=== PATIENT | female | born 1940 | race African-American/Black ===

== ENCOUNTER 2021-11-25 09:51 | Observation (INO) ==
[2021-11-25] MEDS ORDERED: ONDANSETRON 4 MG/2 ML VIAL IV PRN (10:06)
[2021-11-25] MEDS ORDERED: MAGNESIUM SULF RIDER 2 GM/50 ML PREMIX IV PRN (10:06)
[2021-11-25] MEDS ORDERED: MAGNESIUM SULF RIDER 4 GM/100 ML PREMIX IV PRN (10:06)
[2021-11-25] MEDS ORDERED: ACETAMINOPHEN 325 MG TABLET PO PRN (10:06)
[2021-11-25 13:35] LABS: Basophils % 0.4 % (0.0-0.8); Eosinophils # 0.1 10*3/uL (0.0-0.87); Eosinophils % 1.1 % (0.00-10.9); Hemoglobin 11.1 GM/DL (12.0-16.0); Immature Granulocytes % 0.4 %; Immature Granulocytes Absolute 0.03 #; Lymphocytes # 1.9 10*3/uL (1.4-4.0); Lymphocytes % 25.9 % (21.3-54.2); Mean Corpuscular HGB Conc 32.6 GM/DL (32-36); Mean Corpuscular Volume 92.9 FL (87-102); Mean Platelet Volume 11.5 FL (9.6-12.0); Monocytes # 0.8 10*3/uL (0.11-0.8); Monocytes % 11.4 % (1.7-12.7); Neutrophils % 60.8 % (38.7-73.9); Platelet Count 205 T/CUMM (130-400); Red Blood Count 3.66 MC/CUMM (3.8-5.5); Red Cell Distribution Width 16.5 % (9.3-17.3); White Blood Count 7.4 T/CUMM (4-12)
[2021-11-25 13:59] LABS: Alanine Aminotransferase 40 U/L (13-56); Albumin 3.2 G/DL (3.4-5.0); Alkaline Phosphatase 54 U/L (45-117); Aspartate Amino Transferase 15 U/L (0-37); Bilirubin,Total < 0.39 MG/DL (0.20-1.00); Blood Urea Nitrogen 35 MG/DL (7-18); Calcium 9.7 MG/DL (8.5-10.1); Carbon Dioxide 22 MMOL/L (21-32); Chloride 111 MMOL/L (98-107); Estimated Glom Filtration Rate 41 ML/MIN; Glucose 98 MG/DL (74-106); Osmolality,Calculated 284.5 MOS/KG (273-304); Potassium 3.5 MMOL/L (3.5-5.1); Sodium 139 MMOL/L (136-145); Total Protein 6.8 G/DL (6.4-8.2)
[2021-11-25] MEDS: DILTIAZEM INJ 100 MG in SODIUM CHLORIDE 0.9% 100 ML IV SCH (15:16)
[2021-11-25] MEDS ORDERED: FUROSEMIDE 20 MG/2 ML VIAL IV ONE (15:16)
[2021-11-25] MEDS ORDERED: NAPROXEN 250 MG TABLET PO PRN (15:22)
[2021-11-25] MEDS: AMIODARONE 200 MG TABLET PO SCH (21:45)
[2021-11-25] MEDS: APIXABAN 5 MG TABLET PO SCH (21:45)
[2021-11-25] MEDS: SILDENAFIL 20 MG TABLET PO SCH (21:45)
[2021-11-25] MEDS: ATORVASTATIN 10 MG TABLET PO SCH (21:45)
[2021-11-25] MEDS: PANTOPRAZOLE 40 MG TABLET PO SCH (21:45)
[2021-11-25] MEDS: BUDESONIDE/FORMOTEROL 80-4.5 INHALER 6.9 GM INH SCH (21:46)
[2021-11-25] MEDS: IPRATROPIUM 500 MCG/2.5 ML NEB RESP TX SCH (22:26)
[2021-11-26 05:32] LABS: Basophils % 0.4 % (0.0-0.8); Eosinophils # 0.1 10*3/uL (0.0-0.87); Eosinophils % 1.8 % (0.00-10.9); Hematocrit 31.8 VOL% (35.7-47.0); Hemoglobin 10.3 GM/DL (12.0-16.0); Immature Granulocytes % 0.4 %; Immature Granulocytes Absolute 0.03 #; Lymphocytes # 1.9 10*3/uL (1.4-4.0); Lymphocytes % 26.6 % (21.3-54.2); Mean Corpuscular HGB Conc 32.4 GM/DL (32-36); Mean Corpuscular Volume 94.1 FL (87-102); Monocytes # 0.8 10*3/uL (0.11-0.8); Monocytes % 11.5 % (1.7-12.7); Neutrophils % 59.3 % (38.7-73.9); Platelet Count 189 T/CUMM (130-400); Red Blood Count 3.38 MC/CUMM (3.8-5.5); Red Cell Distribution Width 16.4 % (9.3-17.3); White Blood Count 7.1 T/CUMM (4-12)
[2021-11-26 05:49] LABS: Osmolality,Calculated 285.4 MOS/KG (273-304); Potassium 3.3 MMOL/L (3.5-5.1)
[2021-11-26] MEDS: IPRATROPIUM 500 MCG/2.5 ML NEB RESP TX SCH ×4 (07:16→19:27)
[2021-11-26] MEDS ORDERED: POTASSIUM CHLORIDE 20 MEQ TABLET PO ONE (07:19)
[2021-11-26] MEDS: DILTIAZEM INJ 100 MG in SODIUM CHLORIDE 0.9% 100 ML IV SCH (08:28)
[2021-11-26] MEDS: ASPIRIN EC 81 MG TABLET PO SCH (12:33)
[2021-11-26] MEDS: MONTELUKAST 10 MG TABLET PO SCH (12:33)
[2021-11-26] MEDS: CHOLECALCIFEROL 400 UNIT TABLET PO SCH (12:33)
[2021-11-26] MEDS: DONEPEZIL 10 MG TABLET PO SCH (12:33)
[2021-11-26] MEDS: APIXABAN 5 MG TABLET PO SCH ×2 (12:33→22:21)
[2021-11-26] MEDS: DILTIAZEM CD 120 MG CAPSULE PO SCH (12:34)
[2021-11-26] MEDS: SILDENAFIL 20 MG TABLET PO SCH ×3 (12:35→22:21)
[2021-11-26] MEDS: ESCITALOPRAM 10 MG TABLET PO SCH (12:35)
[2021-11-26] MEDS: SENNA 8.6 MG TABLET PO SCH (12:35)
[2021-11-26] MEDS: AMIODARONE 200 MG TABLET PO SCH ×2 (12:35→22:21)
[2021-11-26] MEDS: PANTOPRAZOLE 40 MG TABLET PO SCH ×2 (12:35→22:21)
[2021-11-26] MEDS: BUDESONIDE/FORMOTEROL 80-4.5 INHALER 6.9 GM INH SCH ×2 (12:36→22:22)
[2021-11-26] MEDS ORDERED: FUROSEMIDE 40 MG/4 ML VIAL IV ONE (15:34)
[2021-11-26] MEDS: ATORVASTATIN 10 MG TABLET PO SCH (22:20)
[2021-11-27 05:05] LABS: Basophils % 0.5 % (0.0-0.8); Eosinophils # 0.1 10*3/uL (0.0-0.87); Eosinophils % 1.2 % (0.00-10.9); Hematocrit 31.6 VOL% (35.7-47.0); Immature Granulocytes % 0.3 %; Immature Granulocytes Absolute 0.02 #; Lymphocytes # 1.5 10*3/uL (1.4-4.0); Lymphocytes % 23.2 % (21.3-54.2); Mean Corpuscular HGB Conc 31.6 GM/DL (32-36); Monocytes # 0.7 10*3/uL (0.11-0.8); Monocytes % 11.2 % (1.7-12.7); Neutrophils % 63.6 % (38.7-73.9); Platelet Count 203 T/CUMM (130-400); Red Blood Count 3.29 MC/CUMM (3.8-5.5); Red Cell Distribution Width 16.5 % (9.3-17.3); White Blood Count 6.6 T/CUMM (4-12)
[2021-11-27 05:20] LABS: Calcium 8.5 MG/DL (8.5-10.1); Osmolality,Calculated 291.1 MOS/KG (273-304); Potassium 3.7 MMOL/L (3.5-5.1)
[2021-11-27] MEDS: IPRATROPIUM 500 MCG/2.5 ML NEB RESP TX SCH ×4 (07:13→18:55)
[2021-11-27] MEDS: ASPIRIN EC 81 MG TABLET PO SCH (08:43)
[2021-11-27] MEDS: ESCITALOPRAM 10 MG TABLET PO SCH (08:43)
[2021-11-27] MEDS: PANTOPRAZOLE 40 MG TABLET PO SCH ×2 (08:43→21:15)
[2021-11-27] MEDS: CHOLECALCIFEROL 400 UNIT TABLET PO SCH (08:43)
[2021-11-27] MEDS: AMIODARONE 200 MG TABLET PO SCH ×2 (08:43→21:15)
[2021-11-27] MEDS: DONEPEZIL 10 MG TABLET PO SCH (08:43)
[2021-11-27] MEDS: MONTELUKAST 10 MG TABLET PO SCH (08:44)
[2021-11-27] MEDS: SILDENAFIL 20 MG TABLET PO SCH ×3 (08:44→21:15)
[2021-11-27] MEDS: BUDESONIDE/FORMOTEROL 80-4.5 INHALER 6.9 GM INH SCH ×2 (08:45→21:15)
[2021-11-27] MEDS: DILTIAZEM CD 120 MG CAPSULE PO SCH (08:45)
[2021-11-27] MEDS: SENNA 8.6 MG TABLET PO SCH (08:45)
[2021-11-27] MEDS: APIXABAN 5 MG TABLET PO SCH ×2 (08:45→21:15)
[2021-11-27] MEDS ORDERED: FUROSEMIDE 40 MG/4 ML VIAL IV ONE ×2 (11:00→15:00)
[2021-11-27] MEDS: ATORVASTATIN 10 MG TABLET PO SCH (21:15)
[2021-11-28 06:08] LABS: Basophils % 0.5 % (0.0-0.8); Eosinophils # 0.1 10*3/uL (0.0-0.87); Eosinophils % 0.8 % (0.00-10.9); Hematocrit 31.8 VOL% (35.7-47.0); Hemoglobin 10.2 GM/DL (12.0-16.0); Immature Granulocytes % 0.4 %; Immature Granulocytes Absolute 0.03 #; Lymphocytes # 1.8 10*3/uL (1.4-4.0); Lymphocytes % 23.6 % (21.3-54.2); Mean Corpuscular HGB Conc 32.1 GM/DL (32-36); Mean Corpuscular Volume 94.4 FL (87-102); Monocytes # 0.8 10*3/uL (0.11-0.8); Monocytes % 11.1 % (1.7-12.7); Neutrophils % 63.6 % (38.7-73.9); Platelet Count 226 T/CUMM (130-400); Red Blood Count 3.37 MC/CUMM (3.8-5.5); Red Cell Distribution Width 16.6 % (9.3-17.3); White Blood Count 7.5 T/CUMM (4-12)
[2021-11-28 06:34] LABS: Calcium 8.8 MG/DL (8.5-10.1); Osmolality,Calculated 280.7 MOS/KG (273-304); Potassium 3.5 MMOL/L (3.5-5.1)
[2021-11-28] MEDS: IPRATROPIUM 500 MCG/2.5 ML NEB RESP TX SCH ×2 (07:38→11:28)
[2021-11-28] MEDS: CHOLECALCIFEROL 400 UNIT TABLET PO SCH (09:31)
[2021-11-28] MEDS: DONEPEZIL 10 MG TABLET PO SCH (09:31)
[2021-11-28] MEDS: SILDENAFIL 20 MG TABLET PO SCH (09:31)
[2021-11-28] MEDS: ASPIRIN EC 81 MG TABLET PO SCH (09:31)
[2021-11-28] MEDS: PANTOPRAZOLE 40 MG TABLET PO SCH (09:32)
[2021-11-28] MEDS: DILTIAZEM CD 120 MG CAPSULE PO SCH (09:32)
[2021-11-28] MEDS: AMIODARONE 200 MG TABLET PO SCH (09:32)
[2021-11-28] MEDS: APIXABAN 5 MG TABLET PO SCH (09:32)
[2021-11-28] MEDS: MONTELUKAST 10 MG TABLET PO SCH (09:32)
[2021-11-28] MEDS: SENNA 8.6 MG TABLET PO SCH (09:33)
[2021-11-28] MEDS: ESCITALOPRAM 10 MG TABLET PO SCH (09:34)
[2021-11-28] MEDS: BUDESONIDE/FORMOTEROL 80-4.5 INHALER 6.9 GM INH SCH (09:37)
[2021-11-28] MEDS ORDERED: FUROSEMIDE 20 MG TABLET PO PRN (10:09)
[2021-11-28 12:11] VITALS: BP 106/54
== END 2021-11-28 15:35 | disposition home or self-care (01) ==
LOC: INTOOBSV 12:19 → N.TELES 12:19
PROVIDERS: ADMIT Internal Medicine Cardiovascular Disease; ATTEND Internal Medicine Cardiovascular Disease

== ENCOUNTER 2022-01-13 12:02 | Inpatient (IN) ==
[2022-01-13] MEDS ORDERED: SODIUM CHLORIDE 0.9% 500 ML IV STA (12:50)
[2022-01-13 13:34] LABS: Basophils # 0.1 10*3/uL (0.0-0.2); Basophils % 0.6 % (0.0-0.8); Eosinophils # 0.1 10*3/uL (0.0-0.87); Eosinophils % 0.9 % (0.00-10.9); Hematocrit 37.1 VOL% (35.7-47.0); Hemoglobin 11.4 GM/DL (12.0-16.0); Immature Granulocytes % 0.5 %; Immature Granulocytes Absolute 0.04 #; Lymphocytes # 2.3 10*3/uL (1.4-4.0); Lymphocytes % 26.5 % (21.3-54.2); Mean Corpuscular HGB Conc 30.7 GM/DL (32-36); Mean Corpuscular Volume 98.7 FL (87-102); Mean Platelet Volume 11.5 FL (9.6-12.0); Monocytes # 0.8 10*3/uL (0.11-0.8); Monocytes % 9.1 % (1.7-12.7); Neutrophils % 62.4 % (38.7-73.9); Platelet Count 303 T/CUMM (130-400); Red Blood Count 3.76 MC/CUMM (3.8-5.5); Red Cell Distribution Width 15.7 % (9.3-17.3); White Blood Count 8.6 T/CUMM (4-12)
[2022-01-13 13:57] LABS: Alanine Aminotransferase 29 U/L (13-56); Albumin 3.2 G/DL (3.4-5.0); Alkaline Phosphatase 77 U/L (45-117); Aspartate Amino Transferase 17 U/L (0-37); Bilirubin,Total < 0.39 MG/DL (0.20-1.00); Blood Urea Nitrogen 29 MG/DL (7-18); Calcium 9.3 MG/DL (8.5-10.1); Carbon Dioxide 28 MMOL/L (21-32); Chloride 108 MMOL/L (98-107); Glucose 107 MG/DL (74-106); Osmolality,Calculated 288.1 MOS/KG (273-304); Potassium 3.7 MMOL/L (3.5-5.1); Sodium 142 MMOL/L (136-145); Total Protein 6.5 G/DL (6.4-8.2)
[2022-01-13] MEDS ORDERED: DILTIAZEM INJ 100 MG in SODIUM CHLORIDE 0.9% 100 ML IV SCH (15:00)
[2022-01-13] MEDS ORDERED: ONDANSETRON 4 MG/2 ML VIAL IV PRN (15:35)
[2022-01-13] MEDS ORDERED: GLUCAGON 1 MG VIAL IM PRN (15:35)
[2022-01-13] MEDS ORDERED: DEXTROSE 10% 250 ML BAG IV PRN (15:40)
[2022-01-13] MEDS ORDERED: AMIODARONE INJ 150 MG in DEXTROSE 5% 100 ML IV ONE (16:39)
[2022-01-13] MEDS ORDERED: AMIODARONE INJ 450 MG in DEXTROSE 5% 241 ML IV SCH (17:00)
[2022-01-13] MEDS: FUROSEMIDE 20 MG TABLET PO SCH (18:22)
[2022-01-13] MEDS: IPRATROPIUM 500 MCG/2.5 ML NEB RESP TX SCH (20:16)
[2022-01-13] MEDS: CALCIUM (CARBONATE)/VITAMIN D 600 MG-400 UNIT TABLET PO SCH (22:00)
[2022-01-13] MEDS: ATORVASTATIN 10 MG TABLET PO SCH (22:00)
[2022-01-13] MEDS: DILTIAZEM CD 120 MG CAPSULE PO SCH (22:00)
[2022-01-13] MEDS: DONEPEZIL 10 MG TABLET PO SCH (22:00)
[2022-01-13] MEDS: APIXABAN 5 MG TABLET PO SCH (22:01)
[2022-01-13] MEDS: AMIODARONE INJ 450 MG in DEXTROSE 5% 241 ML IV SCH (23:00)
[2022-01-14 04:42] LABS: Basophils # 0.1 10*3/uL (0.0-0.2); Basophils % 0.6 % (0.0-0.8); Eosinophils # 0.2 10*3/uL (0.0-0.87); Hematocrit 32.9 VOL% (35.7-47.0); Hemoglobin 10.1 GM/DL (12.0-16.0); Immature Granulocytes % 0.4 %; Immature Granulocytes Absolute 0.03 #; Lymphocytes % 25.6 % (21.3-54.2); Mean Corpuscular HGB Conc 30.7 GM/DL (32-36); Mean Corpuscular Volume 97.6 FL (87-102); Mean Platelet Volume 10.5 FL (9.6-12.0); Monocytes # 0.8 10*3/uL (0.11-0.8); Monocytes % 9.8 % (1.7-12.7); Neutrophils % 61.6 % (38.7-73.9); Platelet Count 263 T/CUMM (130-400); Red Blood Count 3.37 MC/CUMM (3.8-5.5); Red Cell Distribution Width 15.7 % (9.3-17.3)
[2022-01-14 05:05] LABS: Calcium 8.4 MG/DL (8.5-10.1); Osmolality,Calculated 290.1 MOS/KG (273-304); Potassium 3.6 MMOL/L (3.5-5.1)
[2022-01-14 05:08] LABS: Alanine Aminotransferase 27 U/L (13-56); Albumin 2.6 G/DL (3.4-5.0); Alkaline Phosphatase 67 U/L (45-117); Aspartate Amino Transferase 13 U/L (0-37); Bilirubin,Total < 0.39 MG/DL (0.20-1.00); Blood Urea Nitrogen 32 MG/DL (7-18); Calcium 8.3 MG/DL (8.5-10.1); Carbon Dioxide 24 MMOL/L (21-32); Chloride 109 MMOL/L (98-107); Glucose 112 MG/DL (74-106); Osmolality,Calculated 290.1 MOS/KG (273-304); Potassium 3.6 MMOL/L (3.5-5.1); Sodium 142 MMOL/L (136-145); Total Protein 6.2 G/DL (6.4-8.2)
[2022-01-14] MEDS: PANTOPRAZOLE 40 MG TABLET PO SCH (06:15)
[2022-01-14] MEDS: FUROSEMIDE 20 MG TABLET PO SCH ×3 (06:16→17:23)
[2022-01-14] MEDS: IPRATROPIUM 500 MCG/2.5 ML NEB RESP TX SCH ×4 (07:10→19:10)
[2022-01-14] MEDS ORDERED: SODIUM CHLORIDE 0.9% 1,000 ML IV SCH (08:30)
[2022-01-14] MEDS: BUDESONIDE/FORMOTEROL 80-4.5 INHALER 6.9 GM INH SCH ×2 (09:38→13:06)
[2022-01-14] MEDS: ASPIRIN EC 81 MG TABLET PO SCH (10:03)
[2022-01-14] MEDS: APIXABAN 5 MG TABLET PO SCH ×2 (10:04→21:38)
[2022-01-14] MEDS: DILTIAZEM CD 120 MG CAPSULE PO SCH ×2 (10:04→21:38)
[2022-01-14] MEDS: MONTELUKAST 10 MG TABLET PO SCH (10:04)
[2022-01-14] MEDS: ESCITALOPRAM 10 MG TABLET PO SCH (10:04)
[2022-01-14] MEDS ORDERED: propofoL 200 MG/20 ML VIAL IV ONE (12:07)
[2022-01-14] MEDS: AMIODARONE INJ 450 MG in DEXTROSE 5% 241 ML IV SCH (16:47)
[2022-01-14] MEDS: ACETAMINOPHEN 325 MG TABLET PO PRN (17:25)
[2022-01-14] MEDS: CALCIUM (CARBONATE)/VITAMIN D 600 MG-400 UNIT TABLET PO SCH (21:38)
[2022-01-14] MEDS: DONEPEZIL 10 MG TABLET PO SCH (21:38)
[2022-01-14] MEDS: ATORVASTATIN 10 MG TABLET PO SCH (21:38)
[2022-01-15 04:39] LABS: Basophils # 0.1 10*3/uL (0.0-0.2); Basophils % 0.4 % (0.0-0.8); Eosinophils # 0.1 10*3/uL (0.0-0.87); Hematocrit 35.2 VOL% (35.7-47.0); Hemoglobin 10.9 GM/DL (12.0-16.0); Immature Granulocytes % 0.5 %; Immature Granulocytes Absolute 0.07 #; Lymphocytes # 4.2 10*3/uL (1.4-4.0); Lymphocytes % 29.3 % (21.3-54.2); Mean Corpuscular Volume 96.7 FL (87-102); Mean Platelet Volume 11.2 FL (9.6-12.0); Monocytes # 1.2 10*3/uL (0.11-0.8); Monocytes % 8.4 % (1.7-12.7); Neutrophils % 60.4 % (38.7-73.9); Platelet Count 319 T/CUMM (130-400); Red Blood Count 3.64 MC/CUMM (3.8-5.5); Red Cell Distribution Width 15.6 % (9.3-17.3); White Blood Count 14.3 T/CUMM (4-12)
[2022-01-15 05:04] LABS: Calcium 9.2 MG/DL (8.5-10.1); Osmolality,Calculated 284.7 MOS/KG (273-304); Potassium 3.6 MMOL/L (3.5-5.1)
[2022-01-15] MEDS: ACETAMINOPHEN 325 MG TABLET PO PRN (06:06)
[2022-01-15] MEDS: PANTOPRAZOLE 40 MG TABLET PO SCH (06:07)
[2022-01-15] MEDS: FUROSEMIDE 20 MG TABLET PO SCH (06:07)
[2022-01-15] MEDS ORDERED: MORPHINE 2 MG/1 ML SYRINGE IV ONE (06:41)
[2022-01-15] MEDS: IPRATROPIUM 500 MCG/2.5 ML NEB RESP TX SCH (06:52)
[2022-01-15] MEDS: BUDESONIDE/FORMOTEROL 80-4.5 INHALER 6.9 GM INH SCH ×2 (08:19→09:30)
[2022-01-15] MEDS ORDERED: FUROSEMIDE 40 MG/4 ML VIAL IV ONE (08:31)
[2022-01-15] MEDS ORDERED: methylPREDNISolone SOD SUC 125 MG/2 ML VIAL IV ONE (08:32)
[2022-01-15 08:52] LABS: Amorphous Crystals,Urine Occasional /HPF (Few); Bilirubin,Urine Negative (Negative); Blood, Urine Negative (Negative); Glucose,Urine (UA) Negative (Negative); Ketones,Urine Negative (Negative); Mucus,Urine Occasional /LPF (Occasional); Nitrite,Urine Negative (Negative); Protein,Urine Negative (Negative); RBC,Urine <1 /HPF (0-4); Urine Appearance Clear (Clear); Urine Color Yellow (Yellow); Urine Specific Gravity 1.015 (1.001-1.035); Urine Urobilinogen 0.2 eU/dL (<2.0); Urine pH 5.5 (4.5-8.0)
[2022-01-15] MEDS ORDERED: ETOMIDATE 20 MG/10 ML VIAL IV ONE ×2 (08:54→08:58)
[2022-01-15] MEDS ORDERED: SUCCINYLCHOLINE 200 MG/10 ML VIAL ONE (08:55)
[2022-01-15] MEDS ORDERED: SUCCINYLCHOLINE 200 MG/10 ML VIAL IV ONE (08:59)
[2022-01-15] MEDS ORDERED: DILTIAZEM CD 180 MG CAPSULE PO SCH (09:00)
[2022-01-15] MEDS ORDERED: PHENYLEPHRINE DRIP 40 MG/250 ML PREMIX IV ONE (09:40)
[2022-01-15 09:47] LABS: Arterial Base Excess iSTAT -1 MMOL/L (-2.5-2.5); Arterial Bicarbonate iSTAT 25.1 MMOL/L (20-26); Arterial O2 Saturation iSTAT 100 % (95-100); Arterial PCO2 iSTAT 49 MM HG (35-48); Arterial PO2 iSTAT 186 MM HG (80-95); Arterial Total CO2 iSTAT 27 MMO/L (23-27)
[2022-01-15] MEDS ORDERED: PHENYLEPHRINE DRIP 40 MG/250 ML PREMIX IV PRN (09:48)
[2022-01-15] MEDS: MONTELUKAST 10 MG TABLET PO SCH (09:51)
[2022-01-15] MEDS: APIXABAN 5 MG TABLET PO SCH ×2 (09:51→20:45)
[2022-01-15] MEDS: ESCITALOPRAM 10 MG TABLET PO SCH (09:51)
[2022-01-15] MEDS: MIDAZOLAM 100 MG in SODIUM CHLORIDE 0.9% 80 ML IV PRN (09:57)
[2022-01-15] MEDS: AMIODARONE 200 MG TABLET PO SCH (10:30)
[2022-01-15] MEDS: AMIODARONE INJ 450 MG in DEXTROSE 5% 241 ML IV SCH (11:29)
[2022-01-15] MEDS: ASPIRIN EC 81 MG TABLET PO SCH (11:29)
[2022-01-15] MEDS: DEXMEDETOMIDINE 200 MCG in SODIUM CHLORIDE 0.9% 48 ML IV PRN ×2 (11:58→17:27)
[2022-01-15] MEDS: DILTIAZEM 90 MG TABLET PO SCH ×3 (12:31→21:22)
[2022-01-15] MEDS ORDERED: POTASSIUM CHLORIDE 20 MEQ TABLET PO ONE (13:00)
[2022-01-15] MEDS: ALBUTEROL/IPRATROPIUM 3 ML NEB RESP TX SCH ×2 (13:21→19:41)
[2022-01-15] MEDS: FUROSEMIDE 40 MG/4 ML VIAL IV SCH (15:31)
[2022-01-15] MEDS: CALCIUM (CARBONATE)/VITAMIN D 600 MG-400 UNIT TABLET PO SCH (20:45)
[2022-01-15] MEDS: ATORVASTATIN 10 MG TABLET PO SCH (20:45)
[2022-01-15] MEDS: DONEPEZIL 10 MG TABLET PO SCH (20:45)
[2022-01-15 21:16] LABS: Bacteria,Urine Occasional /HPF (Few); Mucus,Urine Occasional /LPF (Occasional); RBC,Urine 4 /HPF (0-4)
[2022-01-15 21:18] LABS: Bilirubin,Urine Negative (Negative); Blood, Urine Small mg/dL (Negative); Glucose,Urine (UA) Negative (Negative); Ketones,Urine Negative (Negative); Nitrite,Urine Negative (Negative); Protein,Urine Negative (Negative); Urine Appearance Clear (Clear); Urine Color Yellow (Yellow); Urine Specific Gravity 1.015 (1.001-1.035); Urine Urobilinogen 0.2 eU/dL (<2.0); Urine pH 5.5 (4.5-8.0)
[2022-01-15] MEDS: DEXMEDETOMIDINE 400 MCG in SODIUM CHLORIDE 0.9% 96 ML IV PRN (22:41)
[2022-01-16] MEDS: ALBUTEROL/IPRATROPIUM 3 ML NEB RESP TX SCH ×4 (00:20→19:55)
[2022-01-16] MEDS: INSULIN REGULAR 100 UNIT/ML SUBCUT SCH ×4 (01:19→18:11)
[2022-01-16 03:56] LABS: ABG Base Excess 0.8 MMOL/L (-2.5-2.5); ABG Oxygen Saturation 93.3 % (95-100); ABG PCO2 34.5 MM HG (35-48); ABG PH 7.454 (7.35-7.45); ABG PO2 71.4 MM HG (80-95)
[2022-01-16] MEDS: MIDAZOLAM 100 MG in SODIUM CHLORIDE 0.9% 80 ML IV PRN ×2 (04:40→19:44)
[2022-01-16 04:50] LABS: Basophils % 0.1 % (0.0-0.8); Hematocrit 29.2 VOL% (35.7-47.0); Hemoglobin 9.3 GM/DL (12.0-16.0); Immature Granulocytes % 0.4 %; Immature Granulocytes Absolute 0.06 #; Lymphocytes # 0.4 10*3/uL (1.4-4.0); Lymphocytes % 2.6 % (21.3-54.2); Mean Corpuscular HGB Conc 31.8 GM/DL (32-36); Mean Corpuscular Volume 96.1 FL (87-102); Mean Platelet Volume 11.3 FL (9.6-12.0); Monocytes # 0.8 10*3/uL (0.11-0.8); Monocytes % 5.6 % (1.7-12.7); Neutrophils % 91.3 % (38.7-73.9); Platelet Count 246 T/CUMM (130-400); Red Blood Count 3.04 MC/CUMM (3.8-5.5); Red Cell Distribution Width 15.2 % (9.3-17.3); White Blood Count 14.6 T/CUMM (4-12)
[2022-01-16 05:15] LABS: Calcium 9.1 MG/DL (8.5-10.1); Lymphocytes 4 % (20-55); Osmolality,Calculated 291.8 MOS/KG (273-304); Platelet Estimate Adequate; Potassium 3.6 MMOL/L (3.5-5.1); Total Cells Counted 100
[2022-01-16 05:20] LABS: Calcium 8.9 MG/DL (8.5-10.1); Osmolality,Calculated 294.5 MOS/KG (273-304); Potassium 3.6 MMOL/L (3.5-5.1)
[2022-01-16] MEDS: PANTOPRAZOLE 40 MG VIAL IV SCH (09:02)
[2022-01-16] MEDS: FUROSEMIDE 40 MG/4 ML VIAL IV SCH ×2 (09:02→15:39)
[2022-01-16] MEDS: MONTELUKAST 10 MG TABLET PO SCH (09:03)
[2022-01-16] MEDS: ESCITALOPRAM 10 MG TABLET PO SCH (09:03)
[2022-01-16] MEDS: LEVOFLOXACIN INJ 500 MG/100 ML PREMIX IV SCH (09:03)
[2022-01-16] MEDS: APIXABAN 5 MG TABLET PO SCH (09:03)
[2022-01-16] MEDS: ASPIRIN CHEW 81 MG TABLET PO SCH (09:03)
[2022-01-16] MEDS: AMIODARONE 200 MG TABLET PO SCH (09:03)
[2022-01-16] MEDS ORDERED: QUEtiapine 25 MG TABLET PO ONE (10:43)
[2022-01-16] MEDS: DEXMEDETOMIDINE 400 MCG in SODIUM CHLORIDE 0.9% 96 ML IV PRN ×2 (13:00→21:02)
[2022-01-16] MEDS: QUEtiapine 25 MG TABLET PO SCH (20:58)
[2022-01-16] MEDS: ATORVASTATIN 10 MG TABLET PO SCH (20:58)
[2022-01-16] MEDS: CALCIUM (CARBONATE)/VITAMIN D 600 MG-400 UNIT TABLET PO SCH (20:58)
[2022-01-16] MEDS: DONEPEZIL 10 MG TABLET PO SCH (20:59)
[2022-01-17] MEDS: ALBUTEROL/IPRATROPIUM 3 ML NEB RESP TX SCH ×5 (00:06→23:46)
[2022-01-17] MEDS: INSULIN REGULAR 100 UNIT/ML SUBCUT SCH ×4 (00:16→18:29)
[2022-01-17 04:34] LABS: ABG Base Excess 5.9 MMOL/L (-2.5-2.5); ABG HCO3 29.8 MMOL/L (20-26); ABG Oxygen Saturation 98.9 % (95-100); ABG PCO2 27.1 MM HG (35-48); ABG TCO2 24.6 MMOL/L (23-27)
[2022-01-17 04:37] LABS: ABG PH 7.607 (7.35-7.45)
[2022-01-17 05:47] LABS: Basophils % 0.2 % (0.0-0.8); Eosinophils % 0.2 % (0.00-10.9); Hematocrit 29.9 VOL% (35.7-47.0); Hemoglobin 9.6 GM/DL (12.0-16.0); Immature Granulocytes % 0.3 %; Immature Granulocytes Absolute 0.04 #; Lymphocytes # 1.5 10*3/uL (1.4-4.0); Lymphocytes % 12.4 % (21.3-54.2); Mean Corpuscular HGB Conc 32.1 GM/DL (32-36); Mean Corpuscular Volume 94.6 FL (87-102); Mean Platelet Volume 11.1 FL (9.6-12.0); Monocytes % 8.5 % (1.7-12.7); Neutrophils % 78.4 % (38.7-73.9); Platelet Count 257 T/CUMM (130-400); Red Blood Count 3.16 MC/CUMM (3.8-5.5); Red Cell Distribution Width 15.8 % (9.3-17.3); White Blood Count 11.8 T/CUMM (4-12)
[2022-01-17 06:05] LABS: Calcium 9.5 MG/DL (8.5-10.1); Osmolality,Calculated 287.7 MOS/KG (273-304); Potassium 3.7 MMOL/L (3.5-5.1)
[2022-01-17] MEDS: DEXMEDETOMIDINE 400 MCG in SODIUM CHLORIDE 0.9% 96 ML IV PRN ×2 (06:58→20:37)
[2022-01-17] MEDS: ENOXAPARIN 80 MG/0.8 ML SYRINGE SUBCUT SCH (08:35)
[2022-01-17] MEDS: ESCITALOPRAM 10 MG TABLET PO SCH (08:36)
[2022-01-17] MEDS: AMIODARONE 200 MG TABLET PO SCH (08:36)
[2022-01-17] MEDS: ASPIRIN CHEW 81 MG TABLET PO SCH (08:36)
[2022-01-17] MEDS: FUROSEMIDE 40 MG/4 ML VIAL IV SCH ×2 (08:36→18:28)
[2022-01-17] MEDS: MONTELUKAST 10 MG TABLET PO SCH (08:36)
[2022-01-17] MEDS: PANTOPRAZOLE 40 MG VIAL IV SCH (08:36)
[2022-01-17] MEDS: methylPREDNISolone SOD SUC 40 MG/1 ML VIAL IV SCH ×2 (08:39→20:40)
[2022-01-17] MEDS: ASCORBIC ACID 500 MG TABLET NG SCH ×2 (10:59→20:38)
[2022-01-17] MEDS: MIDAZOLAM 100 MG in SODIUM CHLORIDE 0.9% 80 ML IV PRN (10:59)
[2022-01-17] MEDS: CALCIUM (CARBONATE)/VITAMIN D 600 MG-400 UNIT TABLET PO SCH (20:38)
[2022-01-17] MEDS: ATORVASTATIN 40 MG TABLET NG SCH (20:38)
[2022-01-17] MEDS: QUEtiapine 25 MG TABLET PO SCH (20:38)
[2022-01-17] MEDS: DONEPEZIL 10 MG TABLET PO SCH (20:39)
[2022-01-18] MEDS: INSULIN REGULAR 100 UNIT/ML SUBCUT SCH ×4 (00:27→17:04)
[2022-01-18 03:36] LABS: Arterial Base Excess iSTAT 7 MMOL/L (-2.5-2.5); Arterial Bicarbonate iSTAT 30.7 MMOL/L (20-26); Arterial O2 Saturation iSTAT 99 % (95-100); Arterial PCO2 iSTAT 38 MM HG (35-48); Arterial PO2 iSTAT 107 MM HG (80-95); Arterial Total CO2 iSTAT 32 MMO/L (23-27); Arterial pH iSTAT 7.514 (7.35-7.45)
[2022-01-18 05:50] LABS: Basophils % 0.1 % (0.0-0.8); Hematocrit 32.1 VOL% (35.7-47.0); Hemoglobin 10.3 GM/DL (12.0-16.0); Immature Granulocytes % 0.7 %; Lymphocytes # 0.5 10*3/uL (1.4-4.0); Lymphocytes % 3.6 % (21.3-54.2); Mean Corpuscular HGB Conc 32.1 GM/DL (32-36); Mean Corpuscular Volume 95.8 FL (87-102); Mean Platelet Volume 11.9 FL (9.6-12.0); Monocytes # 0.8 10*3/uL (0.11-0.8); Monocytes % 5.5 % (1.7-12.7); Neutrophils % 90.1 % (38.7-73.9); Platelet Count 263 T/CUMM (130-400); Red Blood Count 3.35 MC/CUMM (3.8-5.5); Red Cell Distribution Width 15.8 % (9.3-17.3); White Blood Count 14.8 T/CUMM (4-12)
[2022-01-18 05:58] LABS: Hypochromia Slight; Lymphocytes 4 % (20-55); Platelet Estimate Normal; Total Cells Counted 100
[2022-01-18 06:16] LABS: Alanine Aminotransferase 26 U/L (13-56); Albumin 2.7 G/DL (3.4-5.0); Alkaline Phosphatase 66 U/L (45-117); Aspartate Amino Transferase 11 U/L (0-37); Bilirubin,Total < 0.39 MG/DL (0.20-1.00); Blood Urea Nitrogen 57 MG/DL (7-18); Calcium 9.6 MG/DL (8.5-10.1); Carbon Dioxide 30 MMOL/L (21-32); Chloride 100 MMOL/L (98-107); Glucose 219 MG/DL (74-106); Phosphorous 4.4 MG/DL (2.5-4.9); Potassium 4.3 MMOL/L (3.5-5.1); Sodium 136 MMOL/L (136-145); Total Protein 6.9 G/DL (6.4-8.2)
[2022-01-18] MEDS: ALBUTEROL/IPRATROPIUM 3 ML NEB RESP TX SCH ×3 (06:55→18:47)
[2022-01-18] MEDS: DEXMEDETOMIDINE 400 MCG in SODIUM CHLORIDE 0.9% 96 ML IV PRN (08:56)
[2022-01-18] MEDS: ENOXAPARIN 80 MG/0.8 ML SYRINGE SUBCUT SCH (08:57)
[2022-01-18] MEDS: LEVOFLOXACIN INJ 500 MG/100 ML PREMIX IV SCH (08:57)
[2022-01-18] MEDS: methylPREDNISolone SOD SUC 40 MG/1 ML VIAL IV SCH ×2 (08:58→20:34)
[2022-01-18] MEDS: PANTOPRAZOLE 40 MG VIAL IV SCH (08:58)
[2022-01-18] MEDS: FUROSEMIDE 40 MG/4 ML VIAL IV SCH ×2 (08:58→17:11)
[2022-01-18] MEDS: MONTELUKAST 10 MG TABLET PO SCH (08:59)
[2022-01-18] MEDS: ESCITALOPRAM 10 MG TABLET PO SCH (08:59)
[2022-01-18] MEDS: ASPIRIN CHEW 81 MG TABLET PO SCH (08:59)
[2022-01-18] MEDS: ASCORBIC ACID 500 MG TABLET NG SCH ×2 (08:59→20:34)
[2022-01-18] MEDS: AMIODARONE 200 MG TABLET PO SCH (08:59)
[2022-01-18] MEDS: DONEPEZIL 10 MG TABLET PO SCH (20:32)
[2022-01-18] MEDS: ATORVASTATIN 40 MG TABLET NG SCH (20:34)
[2022-01-18] MEDS: CALCIUM (CARBONATE)/VITAMIN D 600 MG-400 UNIT TABLET PO SCH (20:34)
[2022-01-18] MEDS: QUEtiapine 25 MG TABLET PO SCH (20:34)
[2022-01-19] MEDS: INSULIN REGULAR 100 UNIT/ML SUBCUT SCH ×4 (00:47→18:35)
[2022-01-19 04:00] LABS: Basophils % 0.1 % (0.0-0.8); Hematocrit 34.5 VOL% (35.7-47.0); Hemoglobin 10.8 GM/DL (12.0-16.0); Immature Granulocytes % 0.8 %; Immature Granulocytes Absolute 0.12 #; Lymphocytes # 0.6 10*3/uL (1.4-4.0); Lymphocytes % 3.8 % (21.3-54.2); Mean Corpuscular HGB Conc 31.3 GM/DL (32-36); Mean Corpuscular Volume 96.9 FL (87-102); Mean Platelet Volume 11.5 FL (9.6-12.0); Monocytes # 0.8 10*3/uL (0.11-0.8); Monocytes % 4.7 % (1.7-12.7); Neutrophils % 90.6 % (38.7-73.9); Platelet Count 299 T/CUMM (130-400); Red Blood Count 3.56 MC/CUMM (3.8-5.5); Red Cell Distribution Width 15.4 % (9.3-17.3); White Blood Count 15.9 T/CUMM (4-12)
[2022-01-19 04:12] LABS: Lymphocytes 4 % (20-55); Ovalocytes Slight; Platelet Estimate Adequate; Total Cells Counted 100
[2022-01-19 04:14] LABS: Osmolality,Calculated 302.5 MOS/KG (273-304); Potassium 3.8 MMOL/L (3.5-5.1)
[2022-01-19 04:32] LABS: Arterial Base Excess iSTAT 7 MMOL/L (-2.5-2.5); Arterial Bicarbonate iSTAT 31.8 MMOL/L (20-26); Arterial O2 Saturation iSTAT 92 % (95-100); Arterial PCO2 iSTAT 44 MM HG (35-48); Arterial PO2 iSTAT 59 MM HG (80-95); Arterial Total CO2 iSTAT 33 MMO/L (23-27); Arterial pH iSTAT 7.469 (7.35-7.45)
[2022-01-19] MEDS: ALBUTEROL/IPRATROPIUM 3 ML NEB RESP TX SCH ×4 (07:10→19:45)
[2022-01-19] MEDS ORDERED: ERGOCALCIFEROL 50,000 UNIT CAPSULE PO SCH (09:00)
[2022-01-19] MEDS: PANTOPRAZOLE 40 MG VIAL IV SCH (09:30)
[2022-01-19] MEDS: methylPREDNISolone SOD SUC 40 MG/1 ML VIAL IV SCH ×2 (09:30→20:54)
[2022-01-19] MEDS: ENOXAPARIN 80 MG/0.8 ML SYRINGE SUBCUT SCH (09:31)
[2022-01-19] MEDS: ESCITALOPRAM 10 MG TABLET PO SCH (09:31)
[2022-01-19] MEDS: ASCORBIC ACID 500 MG TABLET NG SCH ×2 (09:31→20:54)
[2022-01-19] MEDS: MONTELUKAST 10 MG TABLET PO SCH (09:31)
[2022-01-19] MEDS: FUROSEMIDE 40 MG/4 ML VIAL IV SCH (09:31)
[2022-01-19] MEDS: AMIODARONE 200 MG TABLET PO SCH (09:31)
[2022-01-19] MEDS: ASPIRIN CHEW 81 MG TABLET PO SCH (09:31)
[2022-01-19] MEDS: DONEPEZIL 10 MG TABLET PO SCH (20:53)
[2022-01-19] MEDS: ATORVASTATIN 40 MG TABLET NG SCH (20:53)
[2022-01-19] MEDS: QUEtiapine 25 MG TABLET PO SCH (20:53)
[2022-01-19] MEDS: CALCIUM (CARBONATE)/VITAMIN D 600 MG-400 UNIT TABLET PO SCH (20:53)
[2022-01-20] MEDS: INSULIN REGULAR 100 UNIT/ML SUBCUT SCH ×4 (00:37→17:35)
[2022-01-20] MEDS: ALBUTEROL/IPRATROPIUM 3 ML NEB RESP TX SCH ×4 (00:45→19:55)
[2022-01-20 04:55] LABS: Basophils % 0.1 % (0.0-0.8); Hemoglobin 10.8 GM/DL (12.0-16.0); Immature Granulocytes % 0.6 %; Immature Granulocytes Absolute 0.07 #; Lymphocytes # 0.7 10*3/uL (1.4-4.0); Lymphocytes % 5.4 % (21.3-54.2); Mean Corpuscular HGB Conc 31.8 GM/DL (32-36); Mean Platelet Volume 11.7 FL (9.6-12.0); Monocytes # 0.7 10*3/uL (0.11-0.8); Monocytes % 5.5 % (1.7-12.7); Neutrophils % 88.4 % (38.7-73.9); Platelet Count 304 T/CUMM (130-400); Red Blood Count 3.54 MC/CUMM (3.8-5.5); White Blood Count 12.1 T/CUMM (4-12)
[2022-01-20 05:14] LABS: Alanine Aminotransferase 28 U/L (13-56); Albumin 2.5 G/DL (3.4-5.0); Alkaline Phosphatase 62 U/L (45-117); Aspartate Amino Transferase 16 U/L (0-37); Bilirubin,Total < 0.39 MG/DL (0.20-1.00); Blood Urea Nitrogen 73 MG/DL (7-18); Calcium 9.7 MG/DL (8.5-10.1); Carbon Dioxide 32 MMOL/L (21-32); Chloride 100 MMOL/L (98-107); Glucose 137 MG/DL (74-106); Osmolality,Calculated 298.7 MOS/KG (273-304); Phosphorous 4.9 MG/DL (2.5-4.9); Potassium 3.9 MMOL/L (3.5-5.1); Sodium 138 MMOL/L (136-145); Total Protein 6.8 G/DL (6.4-8.2)
[2022-01-20 06:06] LABS: ABG Base Excess 5.7 MMOL/L (-2.5-2.5); ABG HCO3 29.6 MMOL/L (20-26); ABG Oxygen Saturation 98.4 % (95-100); ABG PCO2 46.8 MM HG (35-48); ABG PH 7.428 (7.35-7.45); ABG TCO2 27.8 MMOL/L (23-27)
[2022-01-20] MEDS: LEVOFLOXACIN INJ 500 MG/100 ML PREMIX IV SCH (08:33)
[2022-01-20] MEDS: ASPIRIN CHEW 81 MG TABLET PO SCH (08:33)
[2022-01-20] MEDS: MONTELUKAST 10 MG TABLET PO SCH (08:33)
[2022-01-20] MEDS: ENOXAPARIN 80 MG/0.8 ML SYRINGE SUBCUT SCH (08:33)
[2022-01-20] MEDS: PANTOPRAZOLE 40 MG VIAL IV SCH (08:33)
[2022-01-20] MEDS: methylPREDNISolone SOD SUC 40 MG/1 ML VIAL IV SCH (08:33)
[2022-01-20] MEDS: AMIODARONE 200 MG TABLET PO SCH (08:33)
[2022-01-20] MEDS: ESCITALOPRAM 10 MG TABLET PO SCH (08:33)
[2022-01-20] MEDS: ASCORBIC ACID 500 MG TABLET NG SCH ×2 (08:34→21:26)
[2022-01-20] MEDS: APIXABAN 2.5 MG TABLET PO SCH (21:26)
[2022-01-20] MEDS: ATORVASTATIN 40 MG TABLET NG SCH (21:26)
[2022-01-20] MEDS: CALCIUM (CARBONATE)/VITAMIN D 600 MG-400 UNIT TABLET PO SCH (21:26)
[2022-01-20] MEDS: QUEtiapine 25 MG TABLET PO SCH (21:26)
[2022-01-20] MEDS: DONEPEZIL 10 MG TABLET PO SCH (21:26)
[2022-01-21] MEDS: ALBUTEROL/IPRATROPIUM 3 ML NEB RESP TX SCH ×4 (01:29→20:05)
[2022-01-21 04:13] LABS: ABG Base Excess 6.5 MMOL/L (-2.5-2.5); ABG HCO3 30.3 MMOL/L (20-26); ABG Oxygen Saturation 97.7 % (95-100); ABG PCO2 45.8 MM HG (35-48); ABG PH 7.445 (7.35-7.45); ABG TCO2 28.3 MMOL/L (23-27); Allen Test Positive
[2022-01-21 04:47] LABS: Basophils % 0.1 % (0.0-0.8); Hematocrit 34.8 VOL% (35.7-47.0); Hemoglobin 10.7 GM/DL (12.0-16.0); Immature Granulocytes % 0.6 %; Immature Granulocytes Absolute 0.07 #; Lymphocytes # 0.9 10*3/uL (1.4-4.0); Mean Corpuscular HGB Conc 30.7 GM/DL (32-36); Mean Corpuscular Volume 95.9 FL (87-102); Mean Platelet Volume 11.7 FL (9.6-12.0); Monocytes # 1.3 10*3/uL (0.11-0.8); Neutrophils % 79.3 % (38.7-73.9); Platelet Count 303 T/CUMM (130-400); Red Blood Count 3.63 MC/CUMM (3.8-5.5); Red Cell Distribution Width 14.9 % (9.3-17.3); White Blood Count 11.1 T/CUMM (4-12)
[2022-01-21] MEDS: INSULIN REGULAR 100 UNIT/ML SUBCUT SCH ×4 (06:02→17:35)
[2022-01-21 08:59] LABS: Calcium 9.3 MG/DL (8.5-10.1); Osmolality,Calculated 296.5 MOS/KG (273-304); Potassium 3.4 MMOL/L (3.5-5.1)
[2022-01-21] MEDS ORDERED: POTASSIUM CHLORIDE 20 MEQ TABLET PO ONE ×2 (09:42→14:00)
[2022-01-21] MEDS: predniSONE 20 MG TABLET PO SCH (11:49)
[2022-01-21] MEDS: ASPIRIN CHEW 81 MG TABLET PO SCH (11:49)
[2022-01-21] MEDS: ASCORBIC ACID 500 MG TABLET NG SCH ×2 (11:49→20:27)
[2022-01-21] MEDS: APIXABAN 2.5 MG TABLET PO SCH ×2 (11:50→20:27)
[2022-01-21] MEDS: FUROSEMIDE 40 MG/4 ML VIAL IV SCH (11:51)
[2022-01-21] MEDS: MONTELUKAST 10 MG TABLET PO SCH (11:51)
[2022-01-21] MEDS: ESCITALOPRAM 10 MG TABLET PO SCH (11:51)
[2022-01-21] MEDS: PANTOPRAZOLE 40 MG VIAL IV SCH (11:51)
[2022-01-21] MEDS: AMIODARONE 200 MG TABLET PO SCH (11:51)
[2022-01-21] MEDS: ATORVASTATIN 40 MG TABLET NG SCH (20:26)
[2022-01-21] MEDS: CALCIUM (CARBONATE)/VITAMIN D 600 MG-400 UNIT TABLET PO SCH (20:26)
[2022-01-21] MEDS: QUEtiapine 25 MG TABLET PO SCH (20:27)
[2022-01-21] MEDS: DONEPEZIL 10 MG TABLET PO SCH (20:27)
[2022-01-22] MEDS: INSULIN REGULAR 100 UNIT/ML SUBCUT SCH ×4 (00:13→18:09)
[2022-01-22] MEDS: ALBUTEROL/IPRATROPIUM 3 ML NEB RESP TX SCH ×4 (00:15→20:10)
[2022-01-22 04:10] LABS: Arterial Base Excess iSTAT 5 MMOL/L (-2.5-2.5); Arterial O2 Saturation iSTAT 95 % (95-100); Arterial PCO2 iSTAT 40 MM HG (35-48); Arterial PO2 iSTAT 69 MM HG (80-95); Arterial Total CO2 iSTAT 30 MMO/L (23-27); Arterial pH iSTAT 7.472 (7.35-7.45)
[2022-01-22 04:43] LABS: Basophils % 0.1 % (0.0-0.8); Hematocrit 34.8 VOL% (35.7-47.0); Hemoglobin 11.1 GM/DL (12.0-16.0); Immature Granulocytes % 0.6 %; Immature Granulocytes Absolute 0.08 #; Lymphocytes # 0.6 10*3/uL (1.4-4.0); Lymphocytes % 4.6 % (21.3-54.2); Mean Corpuscular HGB Conc 31.9 GM/DL (32-36); Mean Corpuscular Volume 95.3 FL (87-102); Mean Platelet Volume 11.4 FL (9.6-12.0); Monocytes # 1.2 10*3/uL (0.11-0.8); Monocytes % 8.7 % (1.7-12.7); Platelet Count 295 T/CUMM (130-400); Red Blood Count 3.65 MC/CUMM (3.8-5.5); Red Cell Distribution Width 14.7 % (9.3-17.3); White Blood Count 13.6 T/CUMM (4-12)
[2022-01-22 05:05] LABS: Calcium 8.8 MG/DL (8.5-10.1); Osmolality,Calculated 303.1 MOS/KG (273-304)
[2022-01-22 05:07] LABS: Lymphocytes 5 % (20-55); Platelet Estimate Adequate; Total Cells Counted 100
[2022-01-22] MEDS: AMIODARONE 200 MG TABLET PO SCH (09:25)
[2022-01-22] MEDS: MONTELUKAST 10 MG TABLET PO SCH (09:25)
[2022-01-22] MEDS: ASCORBIC ACID 500 MG TABLET NG SCH ×2 (09:25→20:24)
[2022-01-22] MEDS: predniSONE 20 MG TABLET PO SCH (09:25)
[2022-01-22] MEDS: APIXABAN 2.5 MG TABLET PO SCH ×2 (09:25→20:24)
[2022-01-22] MEDS: ESCITALOPRAM 10 MG TABLET PO SCH (09:25)
[2022-01-22] MEDS: ASPIRIN CHEW 81 MG TABLET PO SCH (09:25)
[2022-01-22] MEDS: FUROSEMIDE 40 MG/4 ML VIAL IV SCH (09:27)
[2022-01-22] MEDS: LEVOFLOXACIN INJ 500 MG/100 ML PREMIX IV SCH (09:28)
[2022-01-22] MEDS: PANTOPRAZOLE 40 MG VIAL IV SCH (09:28)
[2022-01-22] MEDS: QUEtiapine 25 MG TABLET PO SCH (20:24)
[2022-01-22] MEDS: DONEPEZIL 10 MG TABLET PO SCH (20:24)
[2022-01-22] MEDS: CALCIUM (CARBONATE)/VITAMIN D 600 MG-400 UNIT TABLET PO SCH (20:24)
[2022-01-22] MEDS: ATORVASTATIN 40 MG TABLET NG SCH (20:24)
[2022-01-23] MEDS: ALBUTEROL/IPRATROPIUM 3 ML NEB RESP TX SCH ×3 (00:57→13:28)
[2022-01-23] MEDS: INSULIN REGULAR 100 UNIT/ML SUBCUT SCH ×3 (01:35→12:46)
[2022-01-23 04:09] LABS: Basophils % 0.1 % (0.0-0.8); Hematocrit 33.1 VOL% (35.7-47.0); Hemoglobin 10.6 GM/DL (12.0-16.0); Immature Granulocytes % 0.7 %; Immature Granulocytes Absolute 0.12 #; Lymphocytes # 0.9 10*3/uL (1.4-4.0); Lymphocytes % 4.9 % (21.3-54.2); Mean Corpuscular Volume 95.1 FL (87-102); Mean Platelet Volume 11.5 FL (9.6-12.0); Monocytes # 1.8 10*3/uL (0.11-0.8); Monocytes % 9.5 % (1.7-12.7); Neutrophils % 84.8 % (38.7-73.9); Platelet Count 303 T/CUMM (130-400); Red Blood Count 3.48 MC/CUMM (3.8-5.5); Red Cell Distribution Width 14.9 % (9.3-17.3); White Blood Count 18.5 T/CUMM (4-12)
[2022-01-23 04:37] LABS: Lymphocytes 6 % (20-55); Platelet Estimate Adequate; Total Cells Counted 100
[2022-01-23] MEDS ORDERED: ALUMINUM/MAGNES/SIMETH MAX STR 30 ML UDCUP PO PRN (07:56)
[2022-01-23] MEDS: APIXABAN 2.5 MG TABLET PO SCH (08:46)
[2022-01-23] MEDS: ASCORBIC ACID 500 MG TABLET NG SCH (08:46)
[2022-01-23] MEDS: AMIODARONE 200 MG TABLET PO SCH (08:46)
[2022-01-23] MEDS: MONTELUKAST 10 MG TABLET PO SCH (08:46)
[2022-01-23] MEDS: predniSONE 20 MG TABLET PO SCH (08:46)
[2022-01-23] MEDS: ASPIRIN CHEW 81 MG TABLET PO SCH (08:46)
[2022-01-23] MEDS: ESCITALOPRAM 10 MG TABLET PO SCH (08:46)
[2022-01-23] MEDS: PANTOPRAZOLE 40 MG VIAL IV SCH (08:48)
[2022-01-23] MEDS ORDERED: DOCUSATE SODIUM 100 MG CAPSULE PO SCH (09:00)
[2022-01-23] MEDS ORDERED: FUROSEMIDE 40 MG TABLET PO SCH (09:00)
[2022-01-23] MEDS ORDERED: POLYETHYLENE GLYCOL POWDER 17 GM PACK PO SCH (09:00)
[2022-01-23 12:03] VITALS: BP 119/51
== END 2022-01-23 13:25 | DRG 291 ==
LOC: N.ED 12:02 → N.EDINP 12:02 → SUATTDRO 15:35 → N.TELEN 17:20 → N.CC 01-15 08:37 → SUATTDRO 01-15 08:39 → N.TELEN 01-20 15:45
PROVIDERS: ADMIT Internal Medicine Geriatric Medicine; ATTEND Internal Medicine

== ENCOUNTER 2022-02-13 18:29 | Inpatient (IN) ==
[2022-02-13] MEDS ORDERED: SODIUM CHLORIDE 0.9% 500 ML IV STA (22:52)
[2022-02-13] MEDS ORDERED: ONDANSETRON 4 MG/2 ML VIAL IV STA (22:52)
[2022-02-13 23:28] LABS: Basophils % 0.3 % (0.0-0.8); Eosinophils % 0.5 % (0.00-10.9); Hematocrit 26.6 VOL% (35.7-47.0); Hemoglobin 8.1 GM/DL (12.0-16.0); Immature Granulocytes % 0.9 %; Immature Granulocytes Absolute 0.06 #; Lymphocytes # 0.8 10*3/uL (1.4-4.0); Lymphocytes % 12.6 % (21.3-54.2); Mean Corpuscular HGB Conc 30.5 GM/DL (32-36); Mean Corpuscular Volume 97.8 FL (87-102); Mean Platelet Volume 10.8 FL (9.6-12.0); Monocytes # 0.6 10*3/uL (0.11-0.8); Monocytes % 8.7 % (1.7-12.7); Platelet Count 358 T/CUMM (130-400); Red Blood Count 2.72 MC/CUMM (3.8-5.5); Red Cell Distribution Width 15.9 % (9.3-17.3); White Blood Count 6.6 T/CUMM (4-12)
[2022-02-14 00:16] LABS: Albumin 2.4 G/DL (3.4-5.0); Bilirubin,Total 0.4 MG/DL (0.20-1.00); Calcium 8.5 MG/DL (8.5-10.1); Osmolality,Calculated 285.5 MOS/KG (273-304); Potassium 4.3 MMOL/L (3.5-5.1)
[2022-02-14] MEDS ORDERED: FUROSEMIDE 40 MG/4 ML VIAL IV STA (00:32)
[2022-02-14] MEDS ORDERED: LEVOFLOXACIN INJ 750 MG/150 ML PREMIX IV STA (00:46)
[2022-02-14] MEDS ORDERED: hydrALAZINE 20 MG/1 ML VIAL IV PRN (01:39)
[2022-02-14] MEDS ORDERED: ONDANSETRON 4 MG/2 ML VIAL IV PRN (01:39)
[2022-02-14] MEDS ORDERED: DEXTROSE 10% 250 ML BAG IV PRN (01:39)
[2022-02-14] MEDS ORDERED: ACETAMINOPHEN 325 MG TABLET PO PRN (01:39)
[2022-02-14] MEDS ORDERED: POTASSIUM CHLORIDE 20 MEQ TABLET PO PRN (01:39)
[2022-02-14] MEDS ORDERED: MORPHINE 2 MG/1 ML SYRINGE IV PRN (01:39)
[2022-02-14] MEDS ORDERED: GLUCAGON 1 MG VIAL IM PRN (01:39)
[2022-02-14] MEDS: ALBUTEROL/IPRATROPIUM 3 ML NEB RESP TX SCH ×4 (01:55→19:42)
[2022-02-14 02:12] LABS: Bacteria,Urine Occasional /HPF (Few); Hyaline Casts,Urine 3 /LPF (0-3); Ketones,Urine Negative (Negative); Mucus,Urine Occasional /LPF (Occasional); Nitrite,Urine Negative (Negative); Protein,Urine Trace mg/dL (Negative); RBC,Urine 1 /HPF (0-4); Squamous Epithelial Cell,Urine Occasional /HPF (0-10); Urine Appearance Clear (Clear); Urine Color Yellow (Yellow); Urine pH 5.5 (4.5-8.0)
[2022-02-14 02:13] LABS: Bilirubin,Urine Negative (Negative); Blood, Urine Negative (Negative); Glucose,Urine (UA) Negative (Negative); Urine Urobilinogen 0.2 eU/dL (<2.0)
[2022-02-14 06:06] LABS: Basophils % 0.4 % (0.0-0.8); Eosinophils # 0.2 10*3/uL (0.0-0.87); Eosinophils % 2.4 % (0.00-10.9); Immature Granulocytes % 0.7 %; Immature Granulocytes Absolute 0.05 #; Lymphocytes # 1.1 10*3/uL (1.4-4.0); Lymphocytes % 15.4 % (21.3-54.2); Mean Corpuscular HGB Conc 30.8 GM/DL (32-36); Mean Corpuscular Volume 98.5 FL (87-102); Mean Platelet Volume 10.2 FL (9.6-12.0); Monocytes # 0.7 10*3/uL (0.11-0.8); Neutrophils % 72.1 % (38.7-73.9); Platelet Count 330 T/CUMM (130-400); Red Blood Count 2.64 MC/CUMM (3.8-5.5); Red Cell Distribution Width 15.8 % (9.3-17.3); White Blood Count 7.4 T/CUMM (4-12)
[2022-02-14 06:25] LABS: Calcium 8.7 MG/DL (8.5-10.1); Osmolality,Calculated 284.4 MOS/KG (273-304); Potassium 3.8 MMOL/L (3.5-5.1)
[2022-02-14] MEDS: ASPIRIN CHEW 81 MG TABLET PO SCH (08:59)
[2022-02-14] MEDS: AMIODARONE 200 MG TABLET PO SCH (08:59)
[2022-02-14] MEDS: ASCORBIC ACID 500 MG TABLET PO SCH ×2 (08:59→20:21)
[2022-02-14] MEDS: APIXABAN 2.5 MG TABLET PO SCH ×2 (08:59→20:21)
[2022-02-14] MEDS: PANTOPRAZOLE 40 MG TABLET PO SCH (08:59)
[2022-02-14] MEDS: FUROSEMIDE 40 MG/4 ML VIAL IV SCH ×2 (09:01→15:38)
[2022-02-14] MEDS: BENZONATATE 100 MG CAPSULE PO PRN (18:00)
[2022-02-14] MEDS: guaiFENesin 200 MG/10 ML UDCUP PO PRN (18:01)
[2022-02-14] MEDS: ESCITALOPRAM 10 MG TABLET PO SCH (20:21)
[2022-02-14] MEDS: ATORVASTATIN 40 MG TABLET PO SCH (20:21)
[2022-02-15] MEDS: ALBUTEROL/IPRATROPIUM 3 ML NEB RESP TX SCH ×4 (00:07→19:01)
[2022-02-15 05:11] LABS: Basophils % 0.4 % (0.0-0.8); Eosinophils # 0.3 10*3/uL (0.0-0.87); Eosinophils % 3.7 % (0.00-10.9); Hemoglobin 7.7 GM/DL (12.0-16.0); Immature Granulocytes % 0.8 %; Immature Granulocytes Absolute 0.06 #; Lymphocytes # 1.4 10*3/uL (1.4-4.0); Lymphocytes % 17.9 % (21.3-54.2); Mean Corpuscular HGB Conc 30.8 GM/DL (32-36); Mean Corpuscular Volume 96.5 FL (87-102); Mean Platelet Volume 10.2 FL (9.6-12.0); Monocytes # 0.9 10*3/uL (0.11-0.8); Monocytes % 11.8 % (1.7-12.7); NRBC # 0.02 10*3/uL; Neutrophils % 65.4 % (38.7-73.9); Platelet Count 394 T/CUMM (130-400); Red Blood Count 2.59 MC/CUMM (3.8-5.5); White Blood Count 7.6 T/CUMM (4-12)
[2022-02-15 06:06] LABS: Folate 19.21 NG/ML (5.38-24.0); Vitamin B12 366 PG/ML (211-911)
[2022-02-15 06:20] LABS: Calcium 8.7 MG/DL (8.5-10.1); Osmolality,Calculated 277.8 MOS/KG (273-304); Potassium 3.7 MMOL/L (3.5-5.1)
[2022-02-15 06:23] LABS: Sedimentation Rate-Westergren 131 MM/HR (0-30)
[2022-02-15 09:10] LABS: % Iron Saturation 11.8 % (18-50)
[2022-02-15] MEDS: ASCORBIC ACID 500 MG TABLET PO SCH ×2 (09:57→21:00)
[2022-02-15] MEDS: PANTOPRAZOLE 40 MG TABLET PO SCH (09:57)
[2022-02-15] MEDS: APIXABAN 2.5 MG TABLET PO SCH ×2 (09:57→21:00)
[2022-02-15] MEDS: ASPIRIN CHEW 81 MG TABLET PO SCH (09:57)
[2022-02-15] MEDS: BENZONATATE 100 MG CAPSULE PO PRN (09:57)
[2022-02-15] MEDS: ESCITALOPRAM 10 MG TABLET PO SCH (09:57)
[2022-02-15] MEDS: AMIODARONE 200 MG TABLET PO SCH (09:57)
[2022-02-15] MEDS: FUROSEMIDE 40 MG/4 ML VIAL IV SCH ×2 (10:01→16:01)
[2022-02-15] MEDS: POLYETHYLENE GLYCOL POWDER 17 GM PACK PO SCH (10:09)
[2022-02-15] MEDS: guaiFENesin 200 MG/10 ML UDCUP PO PRN (15:56)
[2022-02-15] MEDS: ATORVASTATIN 40 MG TABLET PO SCH (21:00)
[2022-02-15] MEDS: FERROUS SULFATE 325 MG TABLET PO SCH (21:00)
[2022-02-16] MEDS: ALBUTEROL/IPRATROPIUM 3 ML NEB RESP TX SCH ×6 (01:02→23:55)
[2022-02-16 07:18] LABS: Basophils % 0.4 % (0.0-0.8); Eosinophils # 0.2 10*3/uL (0.0-0.87); Hematocrit 26.9 VOL% (35.7-47.0); Hemoglobin 8.2 GM/DL (12.0-16.0); Immature Granulocytes % 0.8 %; Immature Granulocytes Absolute 0.06 #; Lymphocytes # 1.1 10*3/uL (1.4-4.0); Lymphocytes % 14.2 % (21.3-54.2); Mean Corpuscular HGB Conc 30.5 GM/DL (32-36); Mean Corpuscular Volume 96.1 FL (87-102); Mean Platelet Volume 10.4 FL (9.6-12.0); Monocytes # 0.8 10*3/uL (0.11-0.8); Monocytes % 10.7 % (1.7-12.7); Neutrophils % 70.9 % (38.7-73.9); Platelet Count 452 T/CUMM (130-400); Red Cell Distribution Width 16.1 % (9.3-17.3); White Blood Count 7.9 T/CUMM (4-12)
[2022-02-16 07:38] LABS: Osmolality,Calculated 274.8 MOS/KG (273-304)
[2022-02-16] MEDS: ESCITALOPRAM 10 MG TABLET PO SCH (10:03)
[2022-02-16] MEDS: ASPIRIN CHEW 81 MG TABLET PO SCH (10:03)
[2022-02-16] MEDS: FERROUS SULFATE 325 MG TABLET PO SCH ×2 (10:03→21:17)
[2022-02-16] MEDS: APIXABAN 2.5 MG TABLET PO SCH (10:04)
[2022-02-16] MEDS: BENZONATATE 100 MG CAPSULE PO PRN ×2 (10:04→16:25)
[2022-02-16] MEDS: AMIODARONE 200 MG TABLET PO SCH (10:04)
[2022-02-16] MEDS: POLYETHYLENE GLYCOL POWDER 17 GM PACK PO SCH (10:04)
[2022-02-16] MEDS: PANTOPRAZOLE 40 MG TABLET PO SCH (10:04)
[2022-02-16] MEDS: ASCORBIC ACID 500 MG TABLET PO SCH ×2 (10:04→21:17)
[2022-02-16] MEDS: FUROSEMIDE 40 MG/4 ML VIAL IV SCH ×3 (10:05→16:20)
[2022-02-16] MEDS: guaiFENesin 200 MG/10 ML UDCUP PO PRN (16:25)
[2022-02-16] MEDS: ATORVASTATIN 40 MG TABLET PO SCH (21:17)
[2022-02-16] MEDS: DOCUSATE SODIUM 100 MG CAPSULE PO SCH (21:17)
[2022-02-17 06:12] LABS: Basophils % 0.3 % (0.0-0.8); Eosinophils # 0.2 10*3/uL (0.0-0.87); Eosinophils % 2.8 % (0.00-10.9); Hematocrit 27.9 VOL% (35.7-47.0); Hemoglobin 8.6 GM/DL (12.0-16.0); Immature Granulocytes % 0.9 %; Immature Granulocytes Absolute 0.06 #; Lymphocytes # 0.9 10*3/uL (1.4-4.0); Lymphocytes % 14.3 % (21.3-54.2); Mean Corpuscular HGB Conc 30.8 GM/DL (32-36); Mean Corpuscular Volume 95.5 FL (87-102); Mean Platelet Volume 10.6 FL (9.6-12.0); Monocytes # 0.6 10*3/uL (0.11-0.8); Monocytes % 9.8 % (1.7-12.7); NRBC # 0.02 10*3/uL; Neutrophils % 71.9 % (38.7-73.9); Platelet Count 454 T/CUMM (130-400); Red Blood Count 2.92 MC/CUMM (3.8-5.5); Red Cell Distribution Width 16.1 % (9.3-17.3); White Blood Count 6.5 T/CUMM (4-12)
[2022-02-17 06:46] LABS: Potassium 3.2 MMOL/L (3.5-5.1)
[2022-02-17] MEDS: ALBUTEROL/IPRATROPIUM 3 ML NEB RESP TX SCH ×3 (07:00→19:19)
[2022-02-17] MEDS ORDERED: POTASSIUM CHLORIDE 20 MEQ TABLET PO ONE (07:09)
[2022-02-17] MEDS: POLYETHYLENE GLYCOL POWDER 17 GM PACK PO SCH (08:48)
[2022-02-17] MEDS: ESCITALOPRAM 10 MG TABLET PO SCH (08:48)
[2022-02-17] MEDS: ASCORBIC ACID 500 MG TABLET PO SCH ×2 (08:49→21:41)
[2022-02-17] MEDS: FERROUS SULFATE 325 MG TABLET PO SCH ×2 (08:49→21:41)
[2022-02-17] MEDS: PANTOPRAZOLE 40 MG TABLET PO SCH (08:49)
[2022-02-17] MEDS: DOCUSATE SODIUM 100 MG CAPSULE PO SCH ×2 (08:49→21:41)
[2022-02-17] MEDS: AMIODARONE 200 MG TABLET PO SCH (08:49)
[2022-02-17] MEDS: ASPIRIN CHEW 81 MG TABLET PO SCH (08:49)
[2022-02-17 09:21] LABS: Hemoglobin A1 (Alkaline) 98.2 % (96.5-98.5); Hemoglobin A2 (Alkaline) 1.8 % (1.5-3.5)
[2022-02-17] MEDS: FUROSEMIDE 40 MG/4 ML VIAL IV SCH ×2 (09:49→17:03)
[2022-02-17 11:25] LABS: Arterial Base Excess iSTAT 5 MMOL/L (-2.5-2.5); Arterial O2 Saturation iSTAT 99 % (95-100); Arterial PCO2 iSTAT 28 MM HG (35-48); Arterial PO2 iSTAT 99 MM HG (80-95); Arterial Total CO2 iSTAT 28 MMO/L (23-27); Arterial pH iSTAT 7.593 (7.35-7.45)
[2022-02-17] MEDS: DEXAMETHASONE 4 MG/1 ML VIAL IV SCH (11:25)
[2022-02-17] MEDS: cefTRIAXone 1,000 MG in SODIUM CHLORIDE 0.9% 100 ML IV SCH (11:26)
[2022-02-17] MEDS ORDERED: REMDESIVIR 200 MG in SODIUM CHLORIDE 0.9% 210 ML IV ONE (12:00)
[2022-02-17] MEDS: FERRIC GLUCONATE COMPLEX 125 MG in SODIUM CHLORIDE 0.9% 100 ML IV SCH (17:50)
[2022-02-17] MEDS: ATORVASTATIN 40 MG TABLET PO SCH (21:42)
[2022-02-17] MEDS: ENOXAPARIN 80 MG/0.8 ML SYRINGE SUBCUT SCH (21:42)
[2022-02-18] MEDS: ALBUTEROL/IPRATROPIUM 3 ML NEB RESP TX SCH ×5 (00:02→23:41)
[2022-02-18 05:24] LABS: Basophils % 0.2 % (0.0-0.8); Hematocrit 27.5 VOL% (35.7-47.0); Hemoglobin 8.4 GM/DL (12.0-16.0); Immature Granulocytes % 0.6 %; Immature Granulocytes Absolute 0.04 #; Lymphocytes # 0.7 10*3/uL (1.4-4.0); Mean Corpuscular HGB Conc 30.5 GM/DL (32-36); Mean Corpuscular Volume 95.8 FL (87-102); Mean Platelet Volume 9.8 FL (9.6-12.0); Monocytes % 14.8 % (1.7-12.7); Neutrophils % 73.4 % (38.7-73.9); Platelet Count 454 T/CUMM (130-400); Red Blood Count 2.87 MC/CUMM (3.8-5.5); Red Cell Distribution Width 16.2 % (9.3-17.3); White Blood Count 6.6 T/CUMM (4-12)
[2022-02-18 05:43] LABS: Calcium 8.9 MG/DL (8.5-10.1); Osmolality,Calculated 285.5 MOS/KG (273-304); Potassium 4.9 MMOL/L (3.5-5.1)
[2022-02-18 05:47] LABS: Albumin 2.1 G/DL (3.4-5.0); Bilirubin,Direct 0.1 MG/DL (0.0-0.20); Bilirubin,Indirect 0.3 MG/DL (0.0-1.0); Bilirubin,Total 0.4 MG/DL (0.20-1.00); Total Protein 6.5 G/DL (6.4-8.2)
[2022-02-18] MEDS: FUROSEMIDE 40 MG/4 ML VIAL IV SCH ×2 (09:25→17:03)
[2022-02-18] MEDS: DEXAMETHASONE 4 MG/1 ML VIAL IV SCH (09:25)
[2022-02-18] MEDS: ENOXAPARIN 80 MG/0.8 ML SYRINGE SUBCUT SCH (09:25)
[2022-02-18] MEDS: FERRIC GLUCONATE COMPLEX 125 MG in SODIUM CHLORIDE 0.9% 100 ML IV SCH (09:25)
[2022-02-18] MEDS: SPIRONOLACTONE 25 MG TABLET PO SCH (09:26)
[2022-02-18] MEDS: PANTOPRAZOLE 40 MG TABLET PO SCH (09:26)
[2022-02-18] MEDS: ASPIRIN CHEW 81 MG TABLET PO SCH (09:26)
[2022-02-18] MEDS: FERROUS SULFATE 325 MG TABLET PO SCH ×2 (09:26→21:29)
[2022-02-18] MEDS: ESCITALOPRAM 10 MG TABLET PO SCH (09:26)
[2022-02-18] MEDS: REMDESIVIR 100 MG in SODIUM CHLORIDE 0.9% 100 ML IV SCH (09:26)
[2022-02-18] MEDS: ASCORBIC ACID 500 MG TABLET PO SCH ×2 (09:26→21:29)
[2022-02-18] MEDS: ZINC SULFATE 220 MG CAPSULE PO SCH (09:27)
[2022-02-18] MEDS: DOCUSATE SODIUM 100 MG CAPSULE PO SCH ×2 (09:27→21:29)
[2022-02-18] MEDS: CHOLECALCIFEROL 1,000 UNIT TABLET PO SCH (09:27)
[2022-02-18] MEDS: POLYETHYLENE GLYCOL POWDER 17 GM PACK PO SCH (09:27)
[2022-02-18] MEDS: AMIODARONE 200 MG TABLET PO SCH (09:27)
[2022-02-18] MEDS: cefTRIAXone 1,000 MG in SODIUM CHLORIDE 0.9% 100 ML IV SCH (10:56)
[2022-02-18] MEDS: ATORVASTATIN 40 MG TABLET PO SCH (21:29)
[2022-02-18] MEDS: APIXABAN 2.5 MG TABLET PO SCH (21:30)
[2022-02-19 06:13] LABS: Basophils % 0.1 % (0.0-0.8); Eosinophils % 0.1 % (0.00-10.9); Hemoglobin 8.2 GM/DL (12.0-16.0); Immature Granulocytes % 1.6 %; Immature Granulocytes Absolute 0.12 #; Lymphocytes # 0.8 10*3/uL (1.4-4.0); Lymphocytes % 10.7 % (21.3-54.2); Mean Corpuscular HGB Conc 30.4 GM/DL (32-36); Mean Corpuscular Volume 95.4 FL (87-102); Mean Platelet Volume 10.2 FL (9.6-12.0); Monocytes % 13.9 % (1.7-12.7); NRBC # 0.05 10*3/uL; Neutrophils % 73.6 % (38.7-73.9); Platelet Count 495 T/CUMM (130-400); Red Blood Count 2.83 MC/CUMM (3.8-5.5); Red Cell Distribution Width 16.3 % (9.3-17.3); White Blood Count 7.4 T/CUMM (4-12)
[2022-02-19 06:28] LABS: Calcium 8.6 MG/DL (8.5-10.1); Osmolality,Calculated 286.5 MOS/KG (273-304); Potassium 4.3 MMOL/L (3.5-5.1)
[2022-02-19 06:31] LABS: Alanine Aminotransferase 43 U/L (13-56); Albumin 2.1 G/DL (3.4-5.0); Alkaline Phosphatase 59 U/L (45-117); Aspartate Amino Transferase 36 U/L (0-37); Bilirubin,Indirect 0.3 MG/DL (0.0-1.0); Bilirubin,Total < 0.39 MG/DL (0.20-1.00); Total Protein 6.3 G/DL (6.4-8.2)
[2022-02-19] MEDS: ALBUTEROL/IPRATROPIUM 3 ML NEB RESP TX SCH ×3 (07:15→19:57)
[2022-02-19] MEDS: FUROSEMIDE 40 MG/4 ML VIAL IV SCH ×2 (08:18→16:33)
[2022-02-19] MEDS: DEXAMETHASONE 4 MG/1 ML VIAL IV SCH (08:24)
[2022-02-19] MEDS: AMIODARONE 200 MG TABLET PO SCH (08:24)
[2022-02-19] MEDS: ASPIRIN CHEW 81 MG TABLET PO SCH (08:24)
[2022-02-19] MEDS: SPIRONOLACTONE 25 MG TABLET PO SCH (08:24)
[2022-02-19] MEDS: ESCITALOPRAM 10 MG TABLET PO SCH (08:25)
[2022-02-19] MEDS: FERROUS SULFATE 325 MG TABLET PO SCH ×2 (08:25→20:46)
[2022-02-19] MEDS: CHOLECALCIFEROL 1,000 UNIT TABLET PO SCH (08:25)
[2022-02-19] MEDS: PANTOPRAZOLE 40 MG TABLET PO SCH (08:25)
[2022-02-19] MEDS: APIXABAN 2.5 MG TABLET PO SCH ×2 (08:25→20:46)
[2022-02-19] MEDS: ASCORBIC ACID 500 MG TABLET PO SCH ×2 (08:25→20:46)
[2022-02-19] MEDS: ZINC SULFATE 220 MG CAPSULE PO SCH (08:25)
[2022-02-19] MEDS: POLYETHYLENE GLYCOL POWDER 17 GM PACK PO SCH (08:27)
[2022-02-19] MEDS: DOCUSATE SODIUM 100 MG CAPSULE PO SCH ×2 (08:27→20:46)
[2022-02-19] MEDS: FERRIC GLUCONATE COMPLEX 125 MG in SODIUM CHLORIDE 0.9% 100 ML IV SCH (08:35)
[2022-02-19] MEDS: REMDESIVIR 100 MG in SODIUM CHLORIDE 0.9% 100 ML IV SCH (10:30)
[2022-02-19] MEDS ORDERED: HYDROCORTISONE 2.5% RECTAL CREAM 30 GM TUBE TOP PRN (10:36)
[2022-02-19] MEDS: cefTRIAXone 1,000 MG in SODIUM CHLORIDE 0.9% 100 ML IV SCH (11:09)
[2022-02-19] MEDS: ATORVASTATIN 40 MG TABLET PO SCH (20:46)
[2022-02-19] MEDS: guaiFENesin 200 MG/10 ML UDCUP PO PRN (23:44)
[2022-02-20] MEDS: ALBUTEROL/IPRATROPIUM 3 ML NEB RESP TX SCH ×4 (01:19→19:26)
[2022-02-20 03:59] LABS: Basophils % 0.1 % (0.0-0.8); Eosinophils % 0.4 % (0.00-10.9); Hematocrit 28.4 VOL% (35.7-47.0); Hemoglobin 8.8 GM/DL (12.0-16.0); Immature Granulocytes % 1.7 %; Immature Granulocytes Absolute 0.17 #; Lymphocytes # 1.4 10*3/uL (1.4-4.0); Lymphocytes % 13.9 % (21.3-54.2); Mean Corpuscular Volume 95.6 FL (87-102); Mean Platelet Volume 9.8 FL (9.6-12.0); Monocytes # 0.9 10*3/uL (0.11-0.8); Monocytes % 9.1 % (1.7-12.7); NRBC # 0.11 10*3/uL; Neutrophils % 74.8 % (38.7-73.9); Platelet Count 509 T/CUMM (130-400); Red Blood Count 2.97 MC/CUMM (3.8-5.5); Red Cell Distribution Width 16.4 % (9.3-17.3)
[2022-02-20 04:18] LABS: Alanine Aminotransferase 53 U/L (13-56); Albumin 2.4 G/DL (3.4-5.0); Alkaline Phosphatase 68 U/L (45-117); Aspartate Amino Transferase 44 U/L (0-37); Bilirubin,Total < 0.39 MG/DL (0.20-1.00); Blood Urea Nitrogen 43 MG/DL (7-18); Calcium 9.2 MG/DL (8.5-10.1); Carbon Dioxide 23 MMOL/L (21-32); Chloride 107 MMOL/L (98-107); Glucose 79 MG/DL (74-106); Osmolality,Calculated 284.7 MOS/KG (273-304); Potassium 4.1 MMOL/L (3.5-5.1); Sodium 138 MMOL/L (136-145); Total Protein 6.9 G/DL (6.4-8.2)
[2022-02-20] MEDS: guaiFENesin 200 MG/10 ML UDCUP PO PRN (04:27)
[2022-02-20] MEDS: FUROSEMIDE 40 MG/4 ML VIAL IV SCH ×2 (07:46→17:00)
[2022-02-20] MEDS: DOCUSATE SODIUM 100 MG CAPSULE PO SCH ×2 (09:56→20:28)
[2022-02-20] MEDS: ASPIRIN CHEW 81 MG TABLET PO SCH (09:56)
[2022-02-20] MEDS: FERRIC GLUCONATE COMPLEX 125 MG in SODIUM CHLORIDE 0.9% 100 ML IV SCH (09:56)
[2022-02-20] MEDS: ZINC SULFATE 220 MG CAPSULE PO SCH (09:57)
[2022-02-20] MEDS: APIXABAN 2.5 MG TABLET PO SCH ×2 (09:57→20:28)
[2022-02-20] MEDS: AMIODARONE 200 MG TABLET PO SCH (09:57)
[2022-02-20] MEDS: FERROUS SULFATE 325 MG TABLET PO SCH ×2 (09:57→20:28)
[2022-02-20] MEDS: PANTOPRAZOLE 40 MG TABLET PO SCH (09:57)
[2022-02-20] MEDS: CHOLECALCIFEROL 1,000 UNIT TABLET PO SCH (09:57)
[2022-02-20] MEDS: ESCITALOPRAM 10 MG TABLET PO SCH (09:57)
[2022-02-20] MEDS: SPIRONOLACTONE 25 MG TABLET PO SCH (09:57)
[2022-02-20] MEDS: DEXAMETHASONE 4 MG/1 ML VIAL IV SCH (09:58)
[2022-02-20] MEDS: POLYETHYLENE GLYCOL POWDER 17 GM PACK PO SCH (10:05)
[2022-02-20] MEDS: ASCORBIC ACID 500 MG TABLET PO SCH ×2 (10:05→20:28)
[2022-02-20] MEDS: BENZONATATE 100 MG CAPSULE PO PRN (10:06)
[2022-02-20] MEDS: REMDESIVIR 100 MG in SODIUM CHLORIDE 0.9% 100 ML IV SCH (10:07)
[2022-02-20] MEDS: cefTRIAXone 1,000 MG in SODIUM CHLORIDE 0.9% 100 ML IV SCH (12:11)
[2022-02-20] MEDS: ATORVASTATIN 40 MG TABLET PO SCH (20:28)
[2022-02-21 05:31] LABS: Basophils % 0.3 % (0.0-0.8); Eosinophils # 0.1 10*3/uL (0.0-0.87); Eosinophils % 0.5 % (0.00-10.9); Hematocrit 28.8 VOL% (35.7-47.0); Hemoglobin 8.8 GM/DL (12.0-16.0); Immature Granulocytes % 2.6 %; Immature Granulocytes Absolute 0.27 #; Lymphocytes # 1.6 10*3/uL (1.4-4.0); Mean Corpuscular HGB Conc 30.6 GM/DL (32-36); Mean Platelet Volume 10.2 FL (9.6-12.0); Monocytes # 0.9 10*3/uL (0.11-0.8); Monocytes % 9.1 % (1.7-12.7); NRBC # 0.12 10*3/uL; Neutrophils % 72.5 % (38.7-73.9); Platelet Count 491 T/CUMM (130-400); Red Cell Distribution Width 16.7 % (9.3-17.3); White Blood Count 10.4 T/CUMM (4-12)
[2022-02-21 05:45] LABS: Alanine Aminotransferase 52 U/L (13-56); Albumin 2.2 G/DL (3.4-5.0); Alkaline Phosphatase 75 U/L (45-117); Aspartate Amino Transferase 42 U/L (0-37); Bilirubin,Total < 0.39 MG/DL (0.20-1.00); Blood Urea Nitrogen 43 MG/DL (7-18); Calcium 8.9 MG/DL (8.5-10.1); Carbon Dioxide 26 MMOL/L (21-32); Chloride 108 MMOL/L (98-107); Glucose 79 MG/DL (74-106); Osmolality,Calculated 288.4 MOS/KG (273-304); Potassium 4.4 MMOL/L (3.5-5.1); Sodium 140 MMOL/L (136-145); Total Protein 6.3 G/DL (6.4-8.2)
[2022-02-21] MEDS: ALBUTEROL/IPRATROPIUM 3 ML NEB RESP TX SCH ×4 (07:06→19:06)
[2022-02-21] MEDS: guaiFENesin 200 MG/10 ML UDCUP PO PRN (10:40)
[2022-02-21] MEDS: PANTOPRAZOLE 40 MG TABLET PO SCH (10:44)
[2022-02-21] MEDS: ASPIRIN CHEW 81 MG TABLET PO SCH (10:44)
[2022-02-21] MEDS: ASCORBIC ACID 500 MG TABLET PO SCH ×2 (10:44→20:49)
[2022-02-21] MEDS: APIXABAN 2.5 MG TABLET PO SCH ×2 (10:44→20:49)
[2022-02-21] MEDS: AMIODARONE 200 MG TABLET PO SCH (10:44)
[2022-02-21] MEDS: FERROUS SULFATE 325 MG TABLET PO SCH ×2 (10:45→20:49)
[2022-02-21] MEDS: DOCUSATE SODIUM 100 MG CAPSULE PO SCH ×2 (10:45→20:49)
[2022-02-21] MEDS: ZINC SULFATE 220 MG CAPSULE PO SCH (10:45)
[2022-02-21] MEDS: CHOLECALCIFEROL 1,000 UNIT TABLET PO SCH (10:45)
[2022-02-21] MEDS: SPIRONOLACTONE 25 MG TABLET PO SCH (10:45)
[2022-02-21] MEDS: ESCITALOPRAM 10 MG TABLET PO SCH (10:45)
[2022-02-21] MEDS: FUROSEMIDE 40 MG/4 ML VIAL IV SCH ×2 (10:58→17:42)
[2022-02-21] MEDS: DEXAMETHASONE 4 MG/1 ML VIAL IV SCH (11:02)
[2022-02-21] MEDS: FERRIC GLUCONATE COMPLEX 125 MG in SODIUM CHLORIDE 0.9% 100 ML IV SCH (11:08)
[2022-02-21] MEDS: POLYETHYLENE GLYCOL POWDER 17 GM PACK PO SCH (12:01)
[2022-02-21] MEDS: cefTRIAXone 1,000 MG in SODIUM CHLORIDE 0.9% 100 ML IV SCH (14:05)
[2022-02-21] MEDS: REMDESIVIR 100 MG in SODIUM CHLORIDE 0.9% 100 ML IV SCH (17:42)
[2022-02-21] MEDS: ATORVASTATIN 40 MG TABLET PO SCH (20:49)
[2022-02-22] MEDS: ALBUTEROL/IPRATROPIUM 3 ML NEB RESP TX SCH (00:02)
[2022-02-22 05:41] LABS: Calcium 9.4 MG/DL (8.5-10.1); Osmolality,Calculated 284.7 MOS/KG (273-304); Potassium 4.3 MMOL/L (3.5-5.1)
[2022-02-22] MEDS ORDERED: DAPAGLIFLOZIN 10 MG TABLET PO SCH (09:00)
[2022-02-22] MEDS: DOCUSATE SODIUM 100 MG CAPSULE PO SCH (09:42)
[2022-02-22] MEDS: POLYETHYLENE GLYCOL POWDER 17 GM PACK PO SCH (09:42)
[2022-02-22] MEDS: APIXABAN 2.5 MG TABLET PO SCH (09:42)
[2022-02-22] MEDS: SPIRONOLACTONE 25 MG TABLET PO SCH (09:42)
[2022-02-22] MEDS: ASCORBIC ACID 500 MG TABLET PO SCH (09:43)
[2022-02-22] MEDS: FERROUS SULFATE 325 MG TABLET PO SCH (09:43)
[2022-02-22] MEDS: ZINC SULFATE 220 MG CAPSULE PO SCH (09:43)
[2022-02-22] MEDS: ESCITALOPRAM 10 MG TABLET PO SCH (09:43)
[2022-02-22] MEDS: PANTOPRAZOLE 40 MG TABLET PO SCH (09:43)
[2022-02-22] MEDS: CHOLECALCIFEROL 1,000 UNIT TABLET PO SCH (09:43)
[2022-02-22] MEDS: AMIODARONE 200 MG TABLET PO SCH (09:43)
[2022-02-22] MEDS: ASPIRIN CHEW 81 MG TABLET PO SCH (09:43)
[2022-02-22] MEDS: FUROSEMIDE 40 MG/4 ML VIAL IV SCH (09:43)
[2022-02-22] MEDS: DEXAMETHASONE 4 MG/1 ML VIAL IV SCH (09:45)
[2022-02-22] MEDS: FERRIC GLUCONATE COMPLEX 125 MG in SODIUM CHLORIDE 0.9% 100 ML IV SCH (11:53)
[2022-02-22 12:30] VITALS: BP 117/82
== END 2022-02-22 14:55 | disposition home health service (06) | DRG 177 ==
LOC: N.ED 18:29 → N.EDINP 18:29 → SUATTDRO 02-14 01:39 → N.TELES 02-14 05:25 → N.TELEN 02-17 10:13
PROVIDERS: ADMIT Internal Medicine; ATTEND Internal Medicine

== ENCOUNTER 2022-06-25 10:22 | Inpatient (IN) ==
[2022-06-25] MEDS ORDERED: ONDANSETRON 4 MG/2 ML VIAL IV STA (10:38)
[2022-06-25] MEDS ORDERED: SODIUM CHLORIDE 0.9% 1,000 ML IV STA (10:38)
[2022-06-25 11:39] LABS: Mucus,Urine Occasional /LPF (Occasional)
[2022-06-25 11:41] LABS: Basophils % 0.2 % (0.0-0.8); Eosinophils % 0.4 % (0.00-10.9); Hematocrit 35.9 VOL% (35.7-47.0); Hemoglobin 11.4 GM/DL (12.0-16.0); Immature Granulocytes % 0.6 %; Immature Granulocytes Absolute 0.06 #; Lymphocytes # 1.7 10*3/uL (1.4-4.0); Lymphocytes % 16.4 % (21.3-54.2); Mean Corpuscular HGB Conc 31.8 GM/DL (32-36); Mean Corpuscular Volume 95.7 FL (87-102); Monocytes # 1.2 10*3/uL (0.11-0.8); Monocytes % 11.5 % (1.7-12.7); Neutrophils % 70.9 % (38.7-73.9); Platelet Count 190 T/CUMM (130-400); Red Blood Count 3.75 MC/CUMM (3.8-5.5); White Blood Count 10.2 T/CUMM (4-12)
[2022-06-25 11:43] LABS: Bilirubin,Urine Negative (Negative); Blood, Urine Negative (Negative); Glucose,Urine (UA) 500 mg/dL (Negative); Ketones,Urine Negative (Negative); Nitrite,Urine Negative (Negative); Protein,Urine Negative (Negative); Urine Appearance Clear (Clear); Urine Color Yellow (Yellow); Urine Urobilinogen 0.2 eU/dL (<2.0); Urine pH 5.5 (4.5-8.0)
[2022-06-25 11:58] LABS: Barbiturates Screen,Urine Negative (Negative); Benzodiazepines Screen,Urine Positive (Negative); Cannabinoid Screen,Urine Negative (Negative); Opiate Screen,Urine Negative (Negative); Phencyclidine Screen,Urine Negative (Negative)
[2022-06-25 11:58] LABS: PT Patient Result 10.8 SECS (10.1-12.1); Partial Thromboplastin Time 23.1 SECS (23.7-32.9)
[2022-06-25 12:00] LABS: Alanine Aminotransferase 47 U/L (13-56); Albumin 2.9 G/DL (3.4-5.0); Alkaline Phosphatase 80 U/L (45-117); Aspartate Amino Transferase 15 U/L (0-37); Blood Urea Nitrogen 56 MG/DL (7-18); Calcium 9.2 MG/DL (8.5-10.1); Carbon Dioxide 23 MMOL/L (21-32); Chloride 107 MMOL/L (98-107); Glucose 144 MG/DL (74-106); Osmolality,Calculated 295.5 MOS/KG (273-304); Potassium 4.1 MMOL/L (3.5-5.1); Sodium 139 MMOL/L (136-145); Total Protein 6.4 G/DL (6.4-8.2)
[2022-06-25] MEDS ORDERED: ACETAMINOPHEN 325 MG TABLET PO PRN (13:16)
[2022-06-25] MEDS ORDERED: ONDANSETRON 4 MG/2 ML VIAL IV PRN (13:16)
[2022-06-25] MEDS ORDERED: ASPIRIN EC 325 MG TABLET PO STA (13:19)
[2022-06-25] MEDS ORDERED: CLORAZEPATE 3.75 MG TABLET PO PRN (13:20)
[2022-06-25] MEDS: APIXABAN 5 MG TABLET PO SCH ×2 (13:44→21:01)
[2022-06-25] MEDS: FUROSEMIDE 20 MG TABLET PO SCH (17:55)
[2022-06-25] MEDS: DONEPEZIL 10 MG TABLET PO SCH (21:01)
[2022-06-25] MEDS: AMIODARONE 200 MG TABLET PO SCH (21:02)
[2022-06-25] MEDS: FERROUS SULFATE 325 MG TABLET PO SCH (21:02)
[2022-06-25] MEDS: BUDESONIDE/FORMOTEROL 80-4.5 INHALER 6.9 GM INH SCH (21:02)
[2022-06-25] MEDS: ATORVASTATIN 40 MG TABLET PO SCH (21:02)
[2022-06-26 05:22] LABS: Basophils % 0.4 % (0.0-0.8); Eosinophils # 0.1 10*3/uL (0.0-0.87); Eosinophils % 1.9 % (0.00-10.9); Hematocrit 34.6 VOL% (35.7-47.0); Hemoglobin 10.8 GM/DL (12.0-16.0); Immature Granulocytes % 0.5 %; Immature Granulocytes Absolute 0.04 #; Lymphocytes % 27.4 % (21.3-54.2); Mean Corpuscular HGB Conc 31.2 GM/DL (32-36); Mean Corpuscular Volume 97.2 FL (87-102); Mean Platelet Volume 12.4 FL (9.6-12.0); Monocytes % 13.6 % (1.7-12.7); Neutrophils % 56.2 % (38.7-73.9); Platelet Count 183 T/CUMM (130-400); Red Blood Count 3.56 MC/CUMM (3.8-5.5); Red Cell Distribution Width 16.1 % (9.3-17.3); White Blood Count 7.4 T/CUMM (4-12)
[2022-06-26 05:47] LABS: Calcium 9.2 MG/DL (8.5-10.1); Osmolality,Calculated 293.1 MOS/KG (273-304); Potassium 4.3 MMOL/L (3.5-5.1); Risk Ratio 3.58; VLDL Cholesterol 29.6 MG/DL
[2022-06-26] MEDS: BUDESONIDE/FORMOTEROL 80-4.5 INHALER 6.9 GM INH SCH ×2 (09:00→21:57)
[2022-06-26] MEDS ORDERED: ASPIRIN EC 81 MG TABLET PO SCH (09:00)
[2022-06-26] MEDS: ESCITALOPRAM 10 MG TABLET PO SCH (10:50)
[2022-06-26] MEDS: FERROUS SULFATE 325 MG TABLET PO SCH ×2 (10:50→20:21)
[2022-06-26] MEDS: AMIODARONE 200 MG TABLET PO SCH ×2 (10:51→20:21)
[2022-06-26] MEDS: SPIRONOLACTONE 25 MG TABLET PO SCH (10:51)
[2022-06-26] MEDS: DILTIAZEM CD 240 MG CAPSULE PO SCH (10:51)
[2022-06-26] MEDS: APIXABAN 5 MG TABLET PO SCH ×2 (10:51→20:21)
[2022-06-26] MEDS: FUROSEMIDE 20 MG TABLET PO SCH ×2 (10:51→17:00)
[2022-06-26] MEDS ORDERED: MENTHOL/ZINC OXIDE OINT 71 GM JAR TOP PRN (14:14)
[2022-06-26] MEDS: ATORVASTATIN 40 MG TABLET PO SCH (20:21)
[2022-06-26] MEDS: DONEPEZIL 10 MG TABLET PO SCH (20:21)
[2022-06-27] MEDS: ASPIRIN EC 325 MG TABLET PO SCH (10:26)
[2022-06-27] MEDS: ESCITALOPRAM 10 MG TABLET PO SCH (10:28)
[2022-06-27] MEDS: AMIODARONE 200 MG TABLET PO SCH ×2 (10:28→21:14)
[2022-06-27] MEDS: FUROSEMIDE 20 MG TABLET PO SCH ×2 (10:28→16:39)
[2022-06-27] MEDS: FERROUS SULFATE 325 MG TABLET PO SCH ×2 (10:29→21:14)
[2022-06-27] MEDS: SPIRONOLACTONE 25 MG TABLET PO SCH (10:29)
[2022-06-27] MEDS: BUDESONIDE/FORMOTEROL 80-4.5 INHALER 6.9 GM INH SCH ×2 (10:29→21:14)
[2022-06-27] MEDS: APIXABAN 5 MG TABLET PO SCH ×2 (10:29→21:14)
[2022-06-27] MEDS: DILTIAZEM CD 240 MG CAPSULE PO SCH (10:30)
[2022-06-27] MEDS: BENZONATATE 100 MG CAPSULE PO PRN (12:49)
[2022-06-27] MEDS ORDERED: DOCUSATE SODIUM 100 MG CAPSULE PO PRN (17:13)
[2022-06-27] MEDS: DONEPEZIL 10 MG TABLET PO SCH (21:14)
[2022-06-27] MEDS: ATORVASTATIN 40 MG TABLET PO SCH (21:14)
[2022-06-28 09:03] LABS: Calcium 8.6 MG/DL (8.5-10.1); Osmolality,Calculated 277.5 MOS/KG (273-304); Potassium 4.6 MMOL/L (3.5-5.1)
[2022-06-28] MEDS: DILTIAZEM CD 240 MG CAPSULE PO SCH (09:55)
[2022-06-28] MEDS: POLYETHYLENE GLYCOL POWDER 17 GM PACK PO SCH (09:55)
[2022-06-28] MEDS: FUROSEMIDE 20 MG TABLET PO SCH (09:56)
[2022-06-28] MEDS: FERROUS SULFATE 325 MG TABLET PO SCH ×2 (09:56→21:54)
[2022-06-28] MEDS: AMIODARONE 200 MG TABLET PO SCH ×2 (09:56→21:54)
[2022-06-28] MEDS: SPIRONOLACTONE 25 MG TABLET PO SCH (09:56)
[2022-06-28] MEDS: ASPIRIN EC 325 MG TABLET PO SCH (09:56)
[2022-06-28] MEDS: ESCITALOPRAM 10 MG TABLET PO SCH (09:56)
[2022-06-28] MEDS: BUDESONIDE/FORMOTEROL 80-4.5 INHALER 6.9 GM INH SCH ×2 (09:56→21:53)
[2022-06-28] MEDS: APIXABAN 5 MG TABLET PO SCH ×2 (09:56→21:54)
[2022-06-28] MEDS: DONEPEZIL 10 MG TABLET PO SCH (21:54)
[2022-06-28] MEDS: ATORVASTATIN 40 MG TABLET PO SCH (21:54)
[2022-06-28] MEDS: BENZONATATE 100 MG CAPSULE PO PRN (21:54)
[2022-06-29] MEDS: ESCITALOPRAM 10 MG TABLET PO SCH (09:45)
[2022-06-29] MEDS: AMIODARONE 200 MG TABLET PO SCH (09:45)
[2022-06-29] MEDS: POLYETHYLENE GLYCOL POWDER 17 GM PACK PO SCH (09:45)
[2022-06-29] MEDS: DILTIAZEM CD 240 MG CAPSULE PO SCH (09:45)
[2022-06-29] MEDS: ASPIRIN EC 325 MG TABLET PO SCH (09:45)
[2022-06-29] MEDS: SPIRONOLACTONE 25 MG TABLET PO SCH (09:45)
[2022-06-29] MEDS: FERROUS SULFATE 325 MG TABLET PO SCH (09:45)
[2022-06-29] MEDS: APIXABAN 5 MG TABLET PO SCH (09:45)
[2022-06-29] MEDS: BUDESONIDE/FORMOTEROL 80-4.5 INHALER 6.9 GM INH SCH (09:48)
[2022-06-29 13:05] VITALS: BP 109/52
== END 2022-06-29 14:00 | DRG 65 ==
LOC: EDSEX → EDUNIT# → N.ED 10:22 → SUATTDRO 13:17 → N.EDINP 13:17 → N.5E 15:43
PROVIDERS: ADMIT Family Medicine; ATTEND Family Medicine

== ENCOUNTER 2022-08-19 21:10 | Inpatient (IN) ==
[2022-08-20] MEDS ORDERED: FUROSEMIDE 40 MG/4 ML VIAL IV STA (01:09)
[2022-08-20] MEDS ORDERED: ALBUTEROL/IPRATROPIUM 3 ML NEB RESP TX STA (01:09)
[2022-08-20] MEDS ORDERED: ONDANSETRON 4 MG/2 ML VIAL IV STA (01:09)
[2022-08-20] MEDS ORDERED: methylPREDNISolone SOD SUC 125 MG/2 ML VIAL IV STA (01:09)
[2022-08-20 02:11] LABS: Basophils % 0.2 % (0.0-0.8); Eosinophils % 0.2 % (0.00-10.9); Hematocrit 39.4 VOL% (35.7-47.0); Hemoglobin 12.6 GM/DL (12.0-16.0); Immature Granulocytes % 0.5 %; Immature Granulocytes Absolute 0.06 #; Lymphocytes # 1.7 10*3/uL (1.4-4.0); Lymphocytes % 12.5 % (21.3-54.2); Mean Corpuscular Volume 95.2 FL (87-102); Mean Platelet Volume 11.6 FL (9.6-12.0); Monocytes # 1.2 10*3/uL (0.11-0.8); Monocytes % 8.7 % (1.7-12.7); Neutrophils % 77.9 % (38.7-73.9); Platelet Count 241 T/CUMM (130-400); Red Blood Count 4.14 MC/CUMM (3.8-5.5); Red Cell Distribution Width 16.5 % (9.3-17.3); White Blood Count 13.3 T/CUMM (4-12)
[2022-08-20 02:36] LABS: Lymphocytes 10 % (20-55); Platelet Estimate Adequate; Total Cells Counted 100
[2022-08-20 02:46] LABS: Albumin 2.5 G/DL (3.4-5.0); Bilirubin,Total 0.8 MG/DL (0.20-1.00); Calcium 9.3 MG/DL (8.5-10.1); Osmolality,Calculated 288.7 MOS/KG (273-304); Potassium 4.9 MMOL/L (3.5-5.1); Total Protein 6.9 G/DL (6.4-8.2)
[2022-08-20] MEDS ORDERED: DEXTROSE 50% 25 GM/50 ML VIAL IV PRN (02:58)
[2022-08-20] MEDS ORDERED: ONDANSETRON 4 MG/2 ML VIAL IV PRN (02:58)
[2022-08-20] MEDS ORDERED: GLUCAGON 1 MG VIAL IM PRN (02:58)
[2022-08-20] MEDS ORDERED: MAGNESIUM SULF RIDER 2 GM/50 ML PREMIX IV PRN (02:58)
[2022-08-20] MEDS ORDERED: MAGNESIUM SULF RIDER 4 GM/100 ML PREMIX IV PRN (02:58)
[2022-08-20] MEDS ORDERED: DEXTROSE 10% 250 ML BAG IV PRN (03:06)
[2022-08-20 04:30] LABS: Albumin 2.4 G/DL (3.4-5.0); Bilirubin,Total 0.9 MG/DL (0.20-1.00); Calcium 9.2 MG/DL (8.5-10.1); Osmolality,Calculated 289.7 MOS/KG (273-304); Potassium 4.7 MMOL/L (3.5-5.1); Total Protein 6.5 G/DL (6.4-8.2)
[2022-08-20 08:15] LABS: Basophils % 0.2 % (0.0-0.8); Hemoglobin 11.6 GM/DL (12.0-16.0); Immature Granulocytes % 0.7 %; Immature Granulocytes Absolute 0.09 #; Lymphocytes # 0.6 10*3/uL (1.4-4.0); Mean Corpuscular HGB Conc 32.2 GM/DL (32-36); Mean Platelet Volume 11.6 FL (9.6-12.0); Monocytes # 0.3 10*3/uL (0.11-0.8); Monocytes % 2.2 % (1.7-12.7); Neutrophils % 91.9 % (38.7-73.9); Platelet Count 224 T/CUMM (130-400); Red Blood Count 3.79 MC/CUMM (3.8-5.5); Red Cell Distribution Width 16.6 % (9.3-17.3); White Blood Count 12.1 T/CUMM (4-12)
[2022-08-20] MEDS: FUROSEMIDE 40 MG/4 ML VIAL IV SCH ×2 (08:20→16:11)
[2022-08-20] MEDS: INSULIN REGULAR 100 UNIT/ML SUBCUT SCH ×4 (08:23→22:14)
[2022-08-20 08:38] LABS: Band Neutrophils 1 % (0-10); Lymphocytes 7 % (20-55); Total Cells Counted 100
[2022-08-20 08:48] LABS: Microcytosis Slight; Ovalocytes Slight; Platelet Estimate Normal
[2022-08-20] MEDS: PANTOPRAZOLE 40 MG TABLET PO SCH (09:07)
[2022-08-20] MEDS ORDERED: ATORVASTATIN 40 MG TABLET PO SCH (21:00)
[2022-08-20] MEDS: APIXABAN 2.5 MG TABLET PO SCH (22:02)
[2022-08-20] MEDS: FERROUS SULFATE 325 MG TABLET PO SCH (22:03)
[2022-08-20] MEDS: AMIODARONE 200 MG TABLET PO SCH (22:17)
[2022-08-21 05:49] LABS: Basophils % 0.1 % (0.0-0.8); Hematocrit 32.1 VOL% (35.7-47.0); Immature Granulocytes % 0.9 %; Immature Granulocytes Absolute 0.14 #; Lymphocytes # 0.9 10*3/uL (1.4-4.0); Lymphocytes % 5.7 % (21.3-54.2); Mean Corpuscular HGB Conc 31.2 GM/DL (32-36); Mean Corpuscular Volume 96.4 FL (87-102); Monocytes # 1.2 10*3/uL (0.11-0.8); Monocytes % 8.1 % (1.7-12.7); Neutrophils % 85.2 % (38.7-73.9); Platelet Count 221 T/CUMM (130-400); Red Blood Count 3.33 MC/CUMM (3.8-5.5); Red Cell Distribution Width 16.8 % (9.3-17.3)
[2022-08-21 06:07] LABS: Calcium 8.5 MG/DL (8.5-10.1); Osmolality,Calculated 300.1 MOS/KG (273-304); Potassium 5.1 MMOL/L (3.5-5.1)
[2022-08-21 06:17] LABS: Lymphocytes 4 % (20-55); Total Cells Counted 100
[2022-08-21 06:18] LABS: Microcytosis Slight; Ovalocytes Slight; Platelet Estimate Normal
[2022-08-21] MEDS: INSULIN REGULAR 100 UNIT/ML SUBCUT SCH ×4 (08:31→23:52)
[2022-08-21] MEDS ORDERED: DAPAGLIFLOZIN 10 MG TABLET PO SCH (09:00)
[2022-08-21] MEDS ORDERED: DILTIAZEM CD 240 MG CAPSULE PO SCH (09:00)
[2022-08-21] MEDS ORDERED: SPIRONOLACTONE 25 MG TABLET PO SCH (09:00)
[2022-08-21] MEDS: AMIODARONE 200 MG TABLET PO SCH ×2 (09:47→22:34)
[2022-08-21] MEDS: FUROSEMIDE 40 MG/4 ML VIAL IV SCH (09:47)
[2022-08-21] MEDS: ASPIRIN CHEW 81 MG TABLET PO SCH (09:47)
[2022-08-21] MEDS: APIXABAN 2.5 MG TABLET PO SCH ×2 (09:47→22:34)
[2022-08-21] MEDS: FERROUS SULFATE 325 MG TABLET PO SCH ×2 (09:48→22:34)
[2022-08-21] MEDS: PANTOPRAZOLE 40 MG TABLET PO SCH (09:48)
[2022-08-21] MEDS: ZINC OXIDE PASTE 113 GM TUBE TOP SCH ×2 (15:20→23:52)
[2022-08-21 15:40] LABS: Bilirubin,Urine Negative (Negative); Blood, Urine Trace mg/dL (Negative); Glucose,Urine (UA) 500 mg/dL (Negative); Ketones,Urine Negative (Negative); Nitrite,Urine Negative (Negative); Protein,Urine 30 mg/dL (Negative); Urine Appearance Slightly Cloudy (Clear); Urine Color Yellow (Yellow); Urine pH 5.5 (4.5-8.0)
[2022-08-21 15:41] LABS: Urine Urobilinogen 0.2 eU/dL (<2.0)
[2022-08-21 15:46] LABS: Mucus,Urine Occasional /LPF (Occasional); RBC,Urine 105 /HPF (0-4)
[2022-08-22 05:50] LABS: Basophils % 0.1 % (0.0-0.8); Eosinophils # 0.1 10*3/uL (0.0-0.87); Eosinophils % 0.7 % (0.00-10.9); Hematocrit 31.4 VOL% (35.7-47.0); Hemoglobin 9.7 GM/DL (12.0-16.0); Immature Granulocytes % 0.6 %; Immature Granulocytes Absolute 0.06 #; Lymphocytes # 1.7 10*3/uL (1.4-4.0); Lymphocytes % 16.4 % (21.3-54.2); Mean Corpuscular HGB Conc 30.9 GM/DL (32-36); Mean Corpuscular Volume 97.2 FL (87-102); Mean Platelet Volume 11.8 FL (9.6-12.0); Monocytes % 9.3 % (1.7-12.7); Neutrophils % 72.9 % (38.7-73.9); Platelet Count 244 T/CUMM (130-400); Red Blood Count 3.23 MC/CUMM (3.8-5.5); White Blood Count 10.4 T/CUMM (4-12)
[2022-08-22 06:22] LABS: Albumin 1.9 G/DL (3.4-5.0); Bilirubin,Direct 0.27 MG/DL (0.0-0.20); Bilirubin,Indirect 0.2 MG/DL (0.0-1.0); Bilirubin,Total 0.5 MG/DL (0.20-1.00); Calcium 8.1 MG/DL (8.5-10.1); Osmolality,Calculated 299.4 MOS/KG (273-304); Potassium 4.3 MMOL/L (3.5-5.1); Total Protein 5.3 G/DL (6.4-8.2)
[2022-08-22 06:30] LABS: Eosinophils 1 % (0-10); Lymphocytes 17 % (20-55); Platelet Estimate Normal; Total Cells Counted 99
[2022-08-22 06:31] LABS: Anisocytosis 1+; Burr Cells 1+; Ovalocytes 1+
[2022-08-22] MEDS: INSULIN REGULAR 100 UNIT/ML SUBCUT SCH ×4 (07:23→23:18)
[2022-08-22] MEDS: ASPIRIN CHEW 81 MG TABLET PO SCH (10:04)
[2022-08-22] MEDS: PANTOPRAZOLE 40 MG TABLET PO SCH (10:04)
[2022-08-22] MEDS: APIXABAN 2.5 MG TABLET PO SCH ×2 (10:05→23:04)
[2022-08-22] MEDS: FERROUS SULFATE 325 MG TABLET PO SCH ×2 (10:05→23:04)
[2022-08-22] MEDS: AMIODARONE 200 MG TABLET PO SCH ×2 (10:06→23:18)
[2022-08-22] MEDS: ZINC OXIDE PASTE 113 GM TUBE TOP SCH ×2 (10:07→23:05)
[2022-08-22] MEDS: LACTATED RINGERS 1,000 ML IV SCH (16:02)
[2022-08-23] MEDS: LACTATED RINGERS 1,000 ML IV SCH ×2 (01:42→11:32)
[2022-08-23 04:53] LABS: Basophils % 0.2 % (0.0-0.8); Eosinophils # 0.1 10*3/uL (0.0-0.87); Eosinophils % 0.7 % (0.00-10.9); Hematocrit 32.2 VOL% (35.7-47.0); Hemoglobin 10.2 GM/DL (12.0-16.0); Immature Granulocytes % 0.5 %; Immature Granulocytes Absolute 0.05 #; Lymphocytes # 1.5 10*3/uL (1.4-4.0); Lymphocytes % 16.1 % (21.3-54.2); Mean Corpuscular HGB Conc 31.7 GM/DL (32-36); Mean Corpuscular Volume 94.7 FL (87-102); Mean Platelet Volume 12.2 FL (9.6-12.0); Monocytes # 0.9 10*3/uL (0.11-0.8); Monocytes % 9.3 % (1.7-12.7); Neutrophils % 73.2 % (38.7-73.9); Platelet Count 146 T/CUMM (130-400); Red Cell Distribution Width 16.7 % (9.3-17.3); White Blood Count 9.3 T/CUMM (4-12)
[2022-08-23 05:13] LABS: Calcium 7.6 MG/DL (8.5-10.1); Osmolality,Calculated 292.5 MOS/KG (273-304); Potassium 4.8 MMOL/L (3.5-5.1)
[2022-08-23 05:33] LABS: Lymphocytes 17 % (20-55); Total Cells Counted 100
[2022-08-23 05:34] LABS: Burr Cells 1+; Schistocytes Few
[2022-08-23 05:35] LABS: Anisocytosis Slight; Ovalocytes 1+; Platelet Estimate Adequate; Poikilocytosis Slight
[2022-08-23] MEDS: INSULIN REGULAR 100 UNIT/ML SUBCUT SCH ×4 (08:00→21:22)
[2022-08-23] MEDS: AMIODARONE 200 MG TABLET PO SCH ×2 (10:21→21:21)
[2022-08-23] MEDS: FERROUS SULFATE 325 MG TABLET PO SCH ×2 (10:21→21:21)
[2022-08-23] MEDS: PANTOPRAZOLE 40 MG TABLET PO SCH (10:21)
[2022-08-23] MEDS: ASPIRIN CHEW 81 MG TABLET PO SCH (10:21)
[2022-08-23] MEDS: APIXABAN 2.5 MG TABLET PO SCH ×2 (10:21→21:21)
[2022-08-23] MEDS: ZINC OXIDE PASTE 113 GM TUBE TOP SCH ×2 (11:34→21:21)
[2022-08-24 04:49] LABS: Basophils % 0.2 % (0.0-0.8); Eosinophils # 0.1 10*3/uL (0.0-0.87); Eosinophils % 0.6 % (0.00-10.9); Hematocrit 32.2 VOL% (35.7-47.0); Hemoglobin 10.4 GM/DL (12.0-16.0); Immature Granulocytes % 0.7 %; Immature Granulocytes Absolute 0.07 #; Lymphocytes # 1.4 10*3/uL (1.4-4.0); Lymphocytes % 12.7 % (21.3-54.2); Mean Corpuscular HGB Conc 32.3 GM/DL (32-36); Mean Corpuscular Volume 94.7 FL (87-102); Mean Platelet Volume 11.7 FL (9.6-12.0); Monocytes # 1.1 10*3/uL (0.11-0.8); Neutrophils % 75.8 % (38.7-73.9); Platelet Count 241 T/CUMM (130-400); Red Cell Distribution Width 16.7 % (9.3-17.3); White Blood Count 10.7 T/CUMM (4-12)
[2022-08-24 05:13] LABS: Albumin 1.8 G/DL (3.4-5.0); Bilirubin,Direct 0.47 MG/DL (0.0-0.20); Bilirubin,Indirect 0.3 MG/DL (0.0-1.0); Bilirubin,Total 0.8 MG/DL (0.20-1.00); Osmolality,Calculated 285.7 MOS/KG (273-304); Potassium 4.3 MMOL/L (3.5-5.1); Total Protein 5.3 G/DL (6.4-8.2)
[2022-08-24 05:41] LABS: Anisocytosis 1+; Band Neutrophils 4 % (0-10); Burr Cells 1+; Eosinophils 1 % (0-10); Lymphocytes 11 % (20-55); Platelet Estimate Normal; Total Cells Counted 100
[2022-08-24] MEDS: INSULIN REGULAR 100 UNIT/ML SUBCUT SCH ×3 (08:00→21:42)
[2022-08-24] MEDS: ASPIRIN CHEW 81 MG TABLET PO SCH (09:18)
[2022-08-24] MEDS: PANTOPRAZOLE 40 MG TABLET PO SCH (09:18)
[2022-08-24] MEDS: AMIODARONE 200 MG TABLET PO SCH ×2 (09:19→21:43)
[2022-08-24] MEDS: FERROUS SULFATE 325 MG TABLET PO SCH ×2 (09:19→21:43)
[2022-08-24] MEDS: APIXABAN 2.5 MG TABLET PO SCH ×2 (09:19→21:43)
[2022-08-24] MEDS: ZINC OXIDE PASTE 113 GM TUBE TOP SCH ×2 (09:20→21:43)
[2022-08-25 04:34] LABS: Basophils % 0.3 % (0.0-0.8); Eosinophils # 0.1 10*3/uL (0.0-0.87); Eosinophils % 0.9 % (0.00-10.9); Hematocrit 34.4 VOL% (35.7-47.0); Immature Granulocytes % 0.8 %; Immature Granulocytes Absolute 0.09 #; Lymphocytes # 1.6 10*3/uL (1.4-4.0); Lymphocytes % 13.6 % (21.3-54.2); Mean Corpuscular Volume 95.3 FL (87-102); Mean Platelet Volume 11.5 FL (9.6-12.0); Monocytes # 1.2 10*3/uL (0.11-0.8); Monocytes % 10.8 % (1.7-12.7); Neutrophils % 73.6 % (38.7-73.9); Platelet Count 251 T/CUMM (130-400); Red Blood Count 3.61 MC/CUMM (3.8-5.5); Red Cell Distribution Width 16.9 % (9.3-17.3); White Blood Count 11.4 T/CUMM (4-12)
[2022-08-25 05:02] LABS: Eosinophils 1 % (0-10); Lymphocytes 8 % (20-55); Platelet Estimate Adequate; Total Cells Counted 100
[2022-08-25 05:03] LABS: Albumin 1.8 G/DL (3.4-5.0); Bilirubin,Direct 0.36 MG/DL (0.0-0.20); Bilirubin,Indirect 0.4 MG/DL (0.0-1.0); Bilirubin,Total 0.8 MG/DL (0.20-1.00); Calcium 8.5 MG/DL (8.5-10.1); Osmolality,Calculated 285.5 MOS/KG (273-304); Potassium 4.4 MMOL/L (3.5-5.1); Total Protein 5.5 G/DL (6.4-8.2)
[2022-08-25 05:39] LABS: Hepatitis B Surface Ag Quant < 0.10 Index; Hepatitis B Surface Ag Result Non-Reactive (NonReactive); Hepatitis C Virus Ab Quant < 0.02 Index; Hepatitis C Virus Ab Result Non-Reactive (NonReactive)
[2022-08-25] MEDS: ASPIRIN CHEW 81 MG TABLET PO SCH (09:34)
[2022-08-25] MEDS: FERROUS SULFATE 325 MG TABLET PO SCH ×2 (09:35→21:58)
[2022-08-25] MEDS: PANTOPRAZOLE 40 MG TABLET PO SCH (09:35)
[2022-08-25] MEDS: AMIODARONE 200 MG TABLET PO SCH ×2 (09:35→21:58)
[2022-08-25] MEDS: APIXABAN 2.5 MG TABLET PO SCH ×2 (09:35→21:58)
[2022-08-25] MEDS: INSULIN REGULAR 100 UNIT/ML SUBCUT SCH ×4 (10:00→21:59)
[2022-08-25] MEDS: ZINC OXIDE PASTE 113 GM TUBE TOP SCH ×2 (12:30→22:00)
[2022-08-26 04:09] LABS: Basophils % 0.2 % (0.0-0.8); Eosinophils # 0.1 10*3/uL (0.0-0.87); Eosinophils % 0.6 % (0.00-10.9); Hematocrit 34.6 VOL% (35.7-47.0); Hemoglobin 10.9 GM/DL (12.0-16.0); Lymphocytes # 1.3 10*3/uL (1.4-4.0); Lymphocytes % 12.5 % (21.3-54.2); Mean Corpuscular HGB Conc 31.5 GM/DL (32-36); Mean Corpuscular Volume 95.6 FL (87-102); Mean Platelet Volume 11.4 FL (9.6-12.0); Monocytes # 1.1 10*3/uL (0.11-0.8); Monocytes % 10.8 % (1.7-12.7); Neutrophils % 74.9 % (38.7-73.9); Platelet Count 255 T/CUMM (130-400); Red Blood Count 3.62 MC/CUMM (3.8-5.5); Red Cell Distribution Width 17.2 % (9.3-17.3); White Blood Count 10.3 T/CUMM (4-12)
[2022-08-26 04:38] LABS: Burr Cells Slight; Calcium 8.3 MG/DL (8.5-10.1); Lymphocytes 8 % (20-55); Osmolality,Calculated 282.7 MOS/KG (273-304); Ovalocytes Slight; Platelet Estimate Adequate; Potassium 5.5 MMOL/L (3.5-5.1); Total Cells Counted 100
[2022-08-26] MEDS: INSULIN REGULAR 100 UNIT/ML SUBCUT SCH ×4 (07:47→22:30)
[2022-08-26] MEDS: ASPIRIN CHEW 81 MG TABLET PO SCH (09:08)
[2022-08-26] MEDS: APIXABAN 2.5 MG TABLET PO SCH ×2 (09:08→22:30)
[2022-08-26] MEDS: FERROUS SULFATE 325 MG TABLET PO SCH ×2 (09:08→22:30)
[2022-08-26] MEDS: AMIODARONE 200 MG TABLET PO SCH ×2 (09:08→22:30)
[2022-08-26] MEDS: PANTOPRAZOLE 40 MG TABLET PO SCH (09:08)
[2022-08-26] MEDS: ZINC OXIDE PASTE 113 GM TUBE TOP SCH ×2 (09:09→22:30)
[2022-08-26] MEDS ORDERED: SODIUM POLYSTYRENE SULFATE 15 GM/60 ML BOTTLE PO STA (11:17)
[2022-08-27 04:38] LABS: Basophils % 0.2 % (0.0-0.8); Eosinophils # 0.1 10*3/uL (0.0-0.87); Eosinophils % 1.2 % (0.00-10.9); Hemoglobin 9.7 GM/DL (12.0-16.0); Immature Granulocytes % 1.6 %; Immature Granulocytes Absolute 0.13 #; Lymphocytes # 1.1 10*3/uL (1.4-4.0); Mean Corpuscular HGB Conc 31.3 GM/DL (32-36); Mean Corpuscular Volume 96.9 FL (87-102); Mean Platelet Volume 11.8 FL (9.6-12.0); Monocytes % 11.8 % (1.7-12.7); Neutrophils % 72.2 % (38.7-73.9); Platelet Count 215 T/CUMM (130-400); Red Cell Distribution Width 17.6 % (9.3-17.3); White Blood Count 8.3 T/CUMM (4-12)
[2022-08-27 05:04] LABS: Calcium 8.1 MG/DL (8.5-10.1); Osmolality,Calculated 281.1 MOS/KG (273-304); Potassium 4.1 MMOL/L (3.5-5.1)
[2022-08-27 05:04] LABS: Burr Cells Slight; Eosinophils 1 % (0-10); Hypochromia Slight; Lymphocytes 9 % (20-55); Ovalocytes Slight; Platelet Estimate Adequate; Total Cells Counted 100
[2022-08-27] MEDS: INSULIN REGULAR 100 UNIT/ML SUBCUT SCH ×5 (09:20→22:50)
[2022-08-27] MEDS: PANTOPRAZOLE 40 MG TABLET PO SCH (09:25)
[2022-08-27] MEDS: ASPIRIN CHEW 81 MG TABLET PO SCH (09:25)
[2022-08-27] MEDS: FERROUS SULFATE 325 MG TABLET PO SCH ×2 (09:25→21:50)
[2022-08-27] MEDS: AMIODARONE 200 MG TABLET PO SCH ×2 (09:26→21:50)
[2022-08-27] MEDS: APIXABAN 2.5 MG TABLET PO SCH ×2 (09:26→21:49)
[2022-08-27] MEDS ORDERED: FUROSEMIDE 40 MG/4 ML VIAL IV ONE (12:41)
[2022-08-27] MEDS: ZINC OXIDE PASTE 113 GM TUBE TOP SCH ×2 (13:28→21:50)
[2022-08-27] MEDS ORDERED: FUROSEMIDE 20 MG/2 ML VIAL IV ONE (13:33)
[2022-08-28 04:47] LABS: Basophils % 0.5 % (0.0-0.8); Eosinophils # 0.1 10*3/uL (0.0-0.87); Eosinophils % 1.7 % (0.00-10.9); Hematocrit 29.8 VOL% (35.7-47.0); Hemoglobin 9.4 GM/DL (12.0-16.0); Immature Granulocytes Absolute 0.08 #; Lymphocytes # 1.4 10*3/uL (1.4-4.0); Lymphocytes % 17.7 % (21.3-54.2); Mean Corpuscular HGB Conc 31.5 GM/DL (32-36); Mean Corpuscular Volume 95.5 FL (87-102); Mean Platelet Volume 10.8 FL (9.6-12.0); Monocytes # 0.8 10*3/uL (0.11-0.8); Monocytes % 10.5 % (1.7-12.7); Neutrophils % 68.6 % (38.7-73.9); Platelet Count 316 T/CUMM (130-400); Red Blood Count 3.12 MC/CUMM (3.8-5.5); Red Cell Distribution Width 17.4 % (9.3-17.3); White Blood Count 7.9 T/CUMM (4-12)
[2022-08-28 05:16] LABS: Calcium 8.3 MG/DL (8.5-10.1); Osmolality,Calculated 290.5 MOS/KG (273-304); Potassium 3.8 MMOL/L (3.5-5.1)
[2022-08-28 05:18] LABS: Acanthocytes Few; Band Neutrophils 1 % (0-10); Burr Cells Slight; Lymphocytes 19 % (20-55); Total Cells Counted 100
[2022-08-28 05:19] LABS: Anisocytosis 1+; Ovalocytes Slight; Platelet Estimate Normal
[2022-08-28] MEDS: INSULIN REGULAR 100 UNIT/ML SUBCUT SCH ×4 (08:00→21:48)
[2022-08-28] MEDS: APIXABAN 2.5 MG TABLET PO SCH ×2 (10:06→21:59)
[2022-08-28] MEDS: ASPIRIN CHEW 81 MG TABLET PO SCH (10:06)
[2022-08-28] MEDS: AMIODARONE 200 MG TABLET PO SCH ×2 (10:07→22:00)
[2022-08-28] MEDS: PANTOPRAZOLE 40 MG TABLET PO SCH (10:07)
[2022-08-28] MEDS: FERROUS SULFATE 325 MG TABLET PO SCH ×2 (10:07→22:00)
[2022-08-28] MEDS: DOCUSATE SODIUM 100 MG CAPSULE PO PRN (10:08)
[2022-08-28] MEDS: ZINC OXIDE PASTE 113 GM TUBE TOP SCH ×2 (12:04→22:00)
[2022-08-28] MEDS ORDERED: POLYETHYLENE GLYCOL POWDER 17 GM PACK PO PRN (12:26)
[2022-08-28] MEDS ORDERED: MAGNESIUM HYDROXIDE SUSP 30 ML UDCUP PO PRN (12:31)
[2022-08-28] MEDS ORDERED: FUROSEMIDE 40 MG/4 ML VIAL IV ONE (14:02)
[2022-08-28] MEDS: POLYETHYLENE GLYCOL POWDER 17 GM PACK PO SCH (14:41)
[2022-08-28] MEDS: MAGNESIUM OXIDE 400 MG TABLET PO SCH (22:00)
[2022-08-29 05:09] LABS: Basophils % 0.4 % (0.0-0.8); Eosinophils # 0.1 10*3/uL (0.0-0.87); Eosinophils % 1.3 % (0.00-10.9); Hematocrit 31.5 VOL% (35.7-47.0); Immature Granulocytes % 1.2 %; Immature Granulocytes Absolute 0.09 #; Lymphocytes # 1.1 10*3/uL (1.4-4.0); Lymphocytes % 13.6 % (21.3-54.2); Mean Corpuscular HGB Conc 31.7 GM/DL (32-36); Mean Corpuscular Volume 94.3 FL (87-102); Mean Platelet Volume 10.6 FL (9.6-12.0); Monocytes # 0.8 10*3/uL (0.11-0.8); Monocytes % 10.8 % (1.7-12.7); Neutrophils % 72.7 % (38.7-73.9); Platelet Count 336 T/CUMM (130-400); Red Blood Count 3.34 MC/CUMM (3.8-5.5); Red Cell Distribution Width 17.7 % (9.3-17.3); White Blood Count 7.8 T/CUMM (4-12)
[2022-08-29 05:25] LABS: Calcium 8.2 MG/DL (8.5-10.1); Osmolality,Calculated 290.4 MOS/KG (273-304); Potassium 3.9 MMOL/L (3.5-5.1)
[2022-08-29 05:40] LABS: Anisocytosis 1+; Band Neutrophils 3 % (0-10); Burr Cells 1+; Eosinophils 3 % (0-10); Lymphocytes 14 % (20-55); Platelet Estimate Normal; Total Cells Counted 100
[2022-08-29] MEDS ORDERED: MAGNESIUM HYDROXIDE SUSP 30 ML UDCUP PO ONE (09:12)
[2022-08-29] MEDS: ASPIRIN CHEW 81 MG TABLET PO SCH (09:12)
[2022-08-29] MEDS: AMIODARONE 200 MG TABLET PO SCH ×2 (09:13→21:41)
[2022-08-29] MEDS: POLYETHYLENE GLYCOL POWDER 17 GM PACK PO SCH (09:13)
[2022-08-29] MEDS: PANTOPRAZOLE 40 MG TABLET PO SCH (09:13)
[2022-08-29] MEDS: FERROUS SULFATE 325 MG TABLET PO SCH ×2 (09:13→21:41)
[2022-08-29] MEDS: MAGNESIUM OXIDE 400 MG TABLET PO SCH ×2 (09:13→21:42)
[2022-08-29] MEDS: APIXABAN 2.5 MG TABLET PO SCH ×2 (09:13→21:41)
[2022-08-29] MEDS ORDERED: BISACODYL 10 MG SUPP RECTAL ONE (10:00)
[2022-08-29] MEDS: ZINC OXIDE PASTE 113 GM TUBE TOP SCH ×2 (10:27→21:42)
[2022-08-29] MEDS: INSULIN REGULAR 100 UNIT/ML SUBCUT SCH ×4 (10:28→21:42)
[2022-08-29] MEDS ORDERED: MAGNESIUM SULF RIDER 2 GM/50 ML PREMIX IV ONE (13:00)
[2022-08-29] MEDS: FUROSEMIDE 40 MG/4 ML VIAL IV SCH (17:37)
[2022-08-29] MEDS: MAGNESIUM HYDROXIDE SUSP 30 ML UDCUP PO SCH (21:41)
[2022-08-30 04:54] LABS: Basophils % 0.3 % (0.0-0.8); Eosinophils # 0.1 10*3/uL (0.0-0.87); Hematocrit 31.1 VOL% (35.7-47.0); Hemoglobin 10.1 GM/DL (12.0-16.0); Immature Granulocytes % 1.1 %; Immature Granulocytes Absolute 0.11 #; Lymphocytes # 1.1 10*3/uL (1.4-4.0); Lymphocytes % 10.8 % (21.3-54.2); Mean Corpuscular HGB Conc 32.5 GM/DL (32-36); Mean Corpuscular Volume 93.4 FL (87-102); Mean Platelet Volume 11.3 FL (9.6-12.0); Monocytes # 0.8 10*3/uL (0.11-0.8); Monocytes % 7.9 % (1.7-12.7); Neutrophils % 78.9 % (38.7-73.9); Platelet Count 372 T/CUMM (130-400); Red Blood Count 3.33 MC/CUMM (3.8-5.5); Red Cell Distribution Width 17.4 % (9.3-17.3)
[2022-08-30 05:13] LABS: Calcium 8.2 MG/DL (8.5-10.1); Osmolality,Calculated 286.5 MOS/KG (273-304); Potassium 4.1 MMOL/L (3.5-5.1)
[2022-08-30 05:23] LABS: Eosinophils 1 % (0-10); Lymphocytes 15 % (20-55); Total Cells Counted 100
[2022-08-30 05:24] LABS: Platelet Estimate Adequate
[2022-08-30] MEDS: PANTOPRAZOLE 40 MG TABLET PO SCH (10:13)
[2022-08-30] MEDS: ASPIRIN CHEW 81 MG TABLET PO SCH (10:13)
[2022-08-30] MEDS: AMIODARONE 200 MG TABLET PO SCH ×2 (10:13→20:36)
[2022-08-30] MEDS: APIXABAN 2.5 MG TABLET PO SCH ×2 (10:13→20:37)
[2022-08-30] MEDS: FERROUS SULFATE 325 MG TABLET PO SCH ×2 (10:13→20:32)
[2022-08-30] MEDS: MAGNESIUM OXIDE 400 MG TABLET PO SCH ×2 (10:14→20:36)
[2022-08-30] MEDS: INSULIN REGULAR 100 UNIT/ML SUBCUT SCH ×4 (10:14→20:37)
[2022-08-30] MEDS: MAGNESIUM HYDROXIDE SUSP 30 ML UDCUP PO SCH (10:14)
[2022-08-30] MEDS: ZINC OXIDE PASTE 113 GM TUBE TOP SCH ×2 (10:22→20:37)
[2022-08-30] MEDS: FUROSEMIDE 40 MG/4 ML VIAL IV SCH ×2 (12:09→18:13)
[2022-08-30] MEDS: ACYCLOVIR 800 MG TABLET PO SCH ×3 (14:57→21:00)
[2022-08-30] MEDS: GABAPENTIN 100 MG CAPSULE PO SCH (20:37)
[2022-08-31 05:25] LABS: Basophils % 0.4 % (0.0-0.8); Eosinophils # 0.2 10*3/uL (0.0-0.87); Hematocrit 31.9 VOL% (35.7-47.0); Immature Granulocytes % 1.8 %; Immature Granulocytes Absolute 0.14 #; Lymphocytes # 0.8 10*3/uL (1.4-4.0); Lymphocytes % 10.8 % (21.3-54.2); Mean Corpuscular HGB Conc 31.3 GM/DL (32-36); Mean Corpuscular Volume 95.5 FL (87-102); Monocytes # 0.6 10*3/uL (0.11-0.8); Platelet Count 258 T/CUMM (130-400); Red Blood Count 3.34 MC/CUMM (3.8-5.5); Red Cell Distribution Width 18.1 % (9.3-17.3); White Blood Count 7.67 T/CUMM (4-12)
[2022-08-31 05:56] LABS: Lymphocytes 12 % (20-55); Platelet Estimate Normal; Total Cells Counted 100
[2022-08-31] MEDS: ACYCLOVIR 800 MG TABLET PO SCH ×5 (06:04→22:13)
[2022-08-31 06:09] LABS: Calcium 8.2 MG/DL (8.5-10.1); Osmolality,Calculated 277.1 MOS/KG (273-304); Potassium 4.7 MMOL/L (3.5-5.1)
[2022-08-31] MEDS: INSULIN REGULAR 100 UNIT/ML SUBCUT SCH ×4 (08:13→20:39)
[2022-08-31] MEDS: MAGNESIUM HYDROXIDE SUSP 30 ML UDCUP PO SCH (09:27)
[2022-08-31] MEDS: FUROSEMIDE 40 MG/4 ML VIAL IV SCH ×2 (09:27→18:08)
[2022-08-31] MEDS: FERROUS SULFATE 325 MG TABLET PO SCH ×2 (09:28→20:38)
[2022-08-31] MEDS: AMIODARONE 200 MG TABLET PO SCH ×2 (09:28→20:38)
[2022-08-31] MEDS: APIXABAN 2.5 MG TABLET PO SCH ×2 (09:28→20:38)
[2022-08-31] MEDS: MAGNESIUM OXIDE 400 MG TABLET PO SCH ×2 (09:28→20:38)
[2022-08-31] MEDS: PANTOPRAZOLE 40 MG TABLET PO SCH (09:28)
[2022-08-31] MEDS: GABAPENTIN 100 MG CAPSULE PO SCH ×2 (09:28→20:38)
[2022-08-31] MEDS: ASPIRIN CHEW 81 MG TABLET PO SCH (09:28)
[2022-08-31] MEDS: ZINC OXIDE PASTE 113 GM TUBE TOP SCH ×2 (10:05→20:38)
[2022-08-31] MEDS: NYSTATIN 500,000 UNIT/5 ML UDCUP SWISH/SWAL SCH ×3 (13:45→20:38)
[2022-08-31] MEDS: CALAMINE LOTION 180 ML BOTTLE TOP SCH (18:09)
[2022-09-01 05:18] LABS: Basophils % 0.2 % (0.0-0.8); Eosinophils # 0.2 10*3/uL (0.0-0.87); Hematocrit 29.2 VOL% (35.7-47.0); Hemoglobin 9.4 GM/DL (12.0-16.0); Immature Granulocytes % 1.8 %; Immature Granulocytes Absolute 0.15 #; Lymphocytes # 1.7 10*3/uL (1.4-4.0); Lymphocytes % 19.9 % (21.3-54.2); Mean Corpuscular HGB Conc 32.2 GM/DL (32-36); Mean Corpuscular Volume 92.1 FL (87-102); Monocytes # 0.7 10*3/uL (0.11-0.8); Monocytes % 8.7 % (1.7-12.7); Neutrophils % 67.4 % (38.7-73.9); Platelet Count 326 T/CUMM (130-400); Red Blood Count 3.17 MC/CUMM (3.8-5.5); Red Cell Distribution Width 17.7 % (9.3-17.3); White Blood Count 8.48 T/CUMM (4-12)
[2022-09-01 05:40] LABS: Lymphocytes 7 % (20-55); Total Cells Counted 100
[2022-09-01 05:41] LABS: Platelet Estimate Adequate
[2022-09-01] MEDS: ACYCLOVIR 800 MG TABLET PO SCH ×5 (05:50→22:06)
[2022-09-01 05:56] LABS: Osmolality,Calculated 275.4 MOS/KG (273-304); Potassium 4.3 MMOL/L (3.5-5.1)
[2022-09-01] MEDS: INSULIN REGULAR 100 UNIT/ML SUBCUT SCH ×4 (09:10→20:01)
[2022-09-01] MEDS: FUROSEMIDE 40 MG/4 ML VIAL IV SCH (10:17)
[2022-09-01] MEDS: APIXABAN 2.5 MG TABLET PO SCH ×2 (10:18→20:00)
[2022-09-01] MEDS: ASPIRIN CHEW 81 MG TABLET PO SCH (10:18)
[2022-09-01] MEDS: PANTOPRAZOLE 40 MG TABLET PO SCH (10:18)
[2022-09-01] MEDS: AMIODARONE 200 MG TABLET PO SCH ×2 (10:19→20:00)
[2022-09-01] MEDS: FERROUS SULFATE 325 MG TABLET PO SCH ×2 (10:19→20:00)
[2022-09-01] MEDS: NYSTATIN 500,000 UNIT/5 ML UDCUP SWISH/SWAL SCH ×4 (10:19→20:00)
[2022-09-01] MEDS: GABAPENTIN 100 MG CAPSULE PO SCH ×2 (10:20→20:00)
[2022-09-01] MEDS: ZINC OXIDE PASTE 113 GM TUBE TOP SCH ×2 (10:20→20:01)
[2022-09-01] MEDS: CALAMINE LOTION 180 ML BOTTLE TOP SCH (10:20)
[2022-09-01] MEDS: MAGNESIUM OXIDE 400 MG TABLET PO SCH ×2 (10:20→20:00)
[2022-09-01] MEDS: MAGNESIUM HYDROXIDE SUSP 30 ML UDCUP PO SCH ×2 (13:21→14:12)
[2022-09-02] MEDS: ACYCLOVIR 800 MG TABLET PO SCH ×5 (06:12→21:45)
[2022-09-02] MEDS: APIXABAN 2.5 MG TABLET PO SCH ×2 (08:41→21:45)
[2022-09-02] MEDS: AMIODARONE 200 MG TABLET PO SCH (08:41)
[2022-09-02] MEDS: ASPIRIN CHEW 81 MG TABLET PO SCH (08:41)
[2022-09-02] MEDS: MAGNESIUM OXIDE 400 MG TABLET PO SCH ×2 (08:41→21:45)
[2022-09-02] MEDS: FERROUS SULFATE 325 MG TABLET PO SCH ×2 (08:41→21:45)
[2022-09-02] MEDS: PANTOPRAZOLE 40 MG TABLET PO SCH (08:41)
[2022-09-02] MEDS: GABAPENTIN 100 MG CAPSULE PO SCH ×2 (08:42→21:45)
[2022-09-02] MEDS: MAGNESIUM HYDROXIDE SUSP 30 ML UDCUP PO SCH (08:42)
[2022-09-02] MEDS: NYSTATIN 500,000 UNIT/5 ML UDCUP SWISH/SWAL SCH ×4 (08:42→21:45)
[2022-09-02] MEDS: CALAMINE LOTION 180 ML BOTTLE TOP SCH (08:54)
[2022-09-02] MEDS: INSULIN REGULAR 100 UNIT/ML SUBCUT SCH ×4 (08:55→20:48)
[2022-09-02] MEDS ORDERED: FUROSEMIDE 80 MG TABLET PO SCH (09:00)
[2022-09-02] MEDS ORDERED: FUROSEMIDE 40 MG TABLET PO SCH (09:00)
[2022-09-02] MEDS: ZINC OXIDE PASTE 113 GM TUBE TOP SCH ×2 (09:25→21:45)
[2022-09-02] MEDS: ACETAMINOPHEN 325 MG TABLET PO PRN (11:58)
[2022-09-02] MEDS ORDERED: TUBERCULIN SKIN TEST 0.1 ML SYRINGE INTRADERM ONE (13:24)
[2022-09-03] MEDS: ACETAMINOPHEN 325 MG TABLET PO PRN (01:26)
[2022-09-03 04:09] LABS: Basophils % 0.2 % (0.0-0.8); Eosinophils # 0.2 10*3/uL (0.0-0.87); Eosinophils % 1.4 % (0.00-10.9); Hematocrit 29.2 VOL% (35.7-47.0); Hemoglobin 9.7 GM/DL (12.0-16.0); Immature Granulocytes % 0.9 %; Immature Granulocytes Absolute 0.12 #; Lymphocytes # 2.3 10*3/uL (1.4-4.0); Lymphocytes % 17.3 % (21.3-54.2); Mean Corpuscular HGB Conc 33.2 GM/DL (32-36); Mean Corpuscular Volume 90.4 FL (87-102); Mean Platelet Volume 11.1 FL (9.6-12.0); Monocytes % 7.3 % (1.7-12.7); Neutrophils % 72.9 % (38.7-73.9); Platelet Count 378 T/CUMM (130-400); Red Blood Count 3.23 MC/CUMM (3.8-5.5); Red Cell Distribution Width 17.5 % (9.3-17.3); White Blood Count 13.38 T/CUMM (4-12)
[2022-09-03 04:29] LABS: Calcium 8.1 MG/DL (8.5-10.1); Osmolality,Calculated 276.4 MOS/KG (273-304); Potassium 4.3 MMOL/L (3.5-5.1)
[2022-09-03 04:32] LABS: Albumin 1.7 G/DL (3.4-5.0); Bilirubin,Total 0.5 MG/DL (0.20-1.00); Calcium 8.1 MG/DL (8.5-10.1); Osmolality,Calculated 273.7 MOS/KG (273-304); Total Protein 5.3 G/DL (6.4-8.2)
[2022-09-03 04:36] LABS: Eosinophils 2 % (0-10); Lymphocytes 8 % (20-55); Platelet Estimate Adequate; Total Cells Counted 100
[2022-09-03] MEDS: ACYCLOVIR 800 MG TABLET PO SCH ×5 (05:20→20:50)
[2022-09-03] MEDS: INSULIN REGULAR 100 UNIT/ML SUBCUT SCH ×4 (07:45→20:50)
[2022-09-03] MEDS: ZINC OXIDE PASTE 113 GM TUBE TOP SCH ×2 (09:37→20:50)
[2022-09-03] MEDS: CALAMINE LOTION 180 ML BOTTLE TOP SCH (09:37)
[2022-09-03] MEDS: NYSTATIN 500,000 UNIT/5 ML UDCUP SWISH/SWAL SCH ×4 (13:21→20:50)
[2022-09-03] MEDS: MAGNESIUM HYDROXIDE SUSP 30 ML UDCUP PO SCH (13:21)
[2022-09-03] MEDS ORDERED: CLINDAMYCIN INJ 900 MG/50 ML PREMIX IV ONE (15:02)
[2022-09-03] MEDS: cefTRIAXone 1,000 MG in SODIUM CHLORIDE 0.9% 100 ML IV SCH (15:10)
[2022-09-03 15:32] LABS: Mucus,Urine Occasional /LPF (Occasional); RBC,Urine 34 /HPF (0-4)
[2022-09-03 15:33] LABS: Bilirubin,Urine Negative (Negative); Blood, Urine Large mg/dL (Negative); Glucose,Urine (UA) Negative (Negative); Ketones,Urine Negative (Negative); Nitrite,Urine Negative (Negative); Protein,Urine 30 mg/dL (Negative); Urine Appearance Cloudy (Clear); Urine Color Yellow (Yellow); Urine Urobilinogen 0.2 eU/dL (<2.0); Urine pH 5.5 (4.5-8.0)
[2022-09-03] MEDS ORDERED: KETAMINE 500 MG/10 ML VIAL ONE (16:11)
[2022-09-03] MEDS ORDERED: ePHEDrine 50 MG/ML VIAL ONE (16:22)
[2022-09-03] MEDS ORDERED: propofoL 200 MG/20 ML VIAL IV ONE (16:26)
[2022-09-03] MEDS ORDERED: LIDOCAINE 2% 5 ML VIAL ONE (16:26)
[2022-09-03] MEDS ORDERED: SODIUM CHLORIDE 0.9% 100 ML IV ONE (16:26)
[2022-09-03] MEDS ORDERED: ONDANSETRON 4 MG/2 ML VIAL IV PRN (16:55)
[2022-09-03] MEDS: HYDROmorphone 1 MG/1 ML SYRINGE IV PRN ×2 (17:00→17:11)
[2022-09-03] MEDS: APIXABAN 2.5 MG TABLET PO SCH ×2 (17:53→20:50)
[2022-09-03] MEDS: FERROUS SULFATE 325 MG TABLET PO SCH ×2 (17:53→20:50)
[2022-09-03] MEDS: GABAPENTIN 100 MG CAPSULE PO SCH ×2 (17:54→20:50)
[2022-09-03] MEDS: MAGNESIUM OXIDE 400 MG TABLET PO SCH ×2 (17:54→20:50)
[2022-09-03] MEDS: PANTOPRAZOLE 40 MG TABLET PO SCH (18:12)
[2022-09-03] MEDS: ASPIRIN CHEW 81 MG TABLET PO SCH (18:12)
[2022-09-03] MEDS: AMIODARONE 200 MG TABLET PO SCH (18:12)
[2022-09-03] MEDS: FUROSEMIDE 40 MG TABLET PO SCH (18:12)
[2022-09-04 04:48] LABS: Basophils % 0.4 % (0.0-0.8); Eosinophils # 0.4 10*3/uL (0.0-0.87); Eosinophils % 3.4 % (0.00-10.9); Hematocrit 27.9 VOL% (35.7-47.0); Hemoglobin 9.2 GM/DL (12.0-16.0); Immature Granulocytes % 0.8 %; Immature Granulocytes Absolute 0.08 #; Lymphocytes # 2.7 10*3/uL (1.4-4.0); Lymphocytes % 26.4 % (21.3-54.2); Mean Corpuscular Volume 90.9 FL (87-102); Mean Platelet Volume 10.2 FL (9.6-12.0); Monocytes # 0.9 10*3/uL (0.11-0.8); Monocytes % 8.2 % (1.7-12.7); Neutrophils % 60.8 % (38.7-73.9); Platelet Count 364 T/CUMM (130-400); Red Blood Count 3.07 MC/CUMM (3.8-5.5); White Blood Count 10.31 T/CUMM (4-12)
[2022-09-04 05:06] LABS: Calcium 7.8 MG/DL (8.5-10.1); Osmolality,Calculated 274.4 MOS/KG (273-304); Potassium 3.8 MMOL/L (3.5-5.1)
[2022-09-04 06:20] LABS: Band Neutrophils 2 % (0-10); Lymphocytes 18 % (20-55); Total Cells Counted 100
[2022-09-04 06:21] LABS: Platelet Estimate Normal
[2022-09-04] MEDS: ACYCLOVIR 800 MG TABLET PO SCH ×4 (06:30→20:14)
[2022-09-04] MEDS: INSULIN REGULAR 100 UNIT/ML SUBCUT SCH ×4 (08:29→20:23)
[2022-09-04] MEDS: MAGNESIUM OXIDE 400 MG TABLET PO SCH ×2 (09:08→20:16)
[2022-09-04] MEDS: AMIODARONE 200 MG TABLET PO SCH (09:08)
[2022-09-04] MEDS: APIXABAN 2.5 MG TABLET PO SCH ×2 (09:08→20:16)
[2022-09-04] MEDS: ZINC OXIDE PASTE 113 GM TUBE TOP SCH ×2 (09:09→20:16)
[2022-09-04] MEDS: PANTOPRAZOLE 40 MG TABLET PO SCH (09:09)
[2022-09-04] MEDS: NYSTATIN 500,000 UNIT/5 ML UDCUP SWISH/SWAL SCH ×4 (09:09→20:14)
[2022-09-04] MEDS: CALAMINE LOTION 180 ML BOTTLE TOP SCH (09:09)
[2022-09-04] MEDS: FERROUS SULFATE 325 MG TABLET PO SCH ×2 (09:09→20:14)
[2022-09-04] MEDS: GABAPENTIN 100 MG CAPSULE PO SCH ×2 (09:09→20:15)
[2022-09-04] MEDS: FUROSEMIDE 40 MG TABLET PO SCH (09:09)
[2022-09-04] MEDS: MAGNESIUM HYDROXIDE SUSP 30 ML UDCUP PO SCH (09:09)
[2022-09-04] MEDS: ASPIRIN CHEW 81 MG TABLET PO SCH (09:09)
[2022-09-04] MEDS: cefTRIAXone 1,000 MG in SODIUM CHLORIDE 0.9% 100 ML IV SCH (09:52)
[2022-09-05] MEDS: ACYCLOVIR 800 MG TABLET PO SCH ×7 (01:06→21:09)
[2022-09-05 05:18] LABS: Basophils % 0.4 % (0.0-0.8); Eosinophils # 0.3 10*3/uL (0.0-0.87); Eosinophils % 2.7 % (0.00-10.9); Hemoglobin 9.6 GM/DL (12.0-16.0); Immature Granulocytes % 1.1 %; Immature Granulocytes Absolute 0.12 #; Lymphocytes # 2.7 10*3/uL (1.4-4.0); Lymphocytes % 24.4 % (21.3-54.2); Mean Corpuscular HGB Conc 33.1 GM/DL (32-36); Mean Corpuscular Volume 90.1 FL (87-102); Mean Platelet Volume 10.7 FL (9.6-12.0); Monocytes # 0.8 10*3/uL (0.11-0.8); Monocytes % 7.3 % (1.7-12.7); Neutrophils % 64.1 % (38.7-73.9); Platelet Count 399 T/CUMM (130-400); Red Blood Count 3.22 MC/CUMM (3.8-5.5); Red Cell Distribution Width 18.2 % (9.3-17.3); White Blood Count 11.06 T/CUMM (4-12)
[2022-09-05 05:34] LABS: Calcium 7.8 MG/DL (8.5-10.1); Osmolality,Calculated 274.5 MOS/KG (273-304); Potassium 4.1 MMOL/L (3.5-5.1)
[2022-09-05] MEDS: AMIODARONE 200 MG TABLET PO SCH (08:20)
[2022-09-05] MEDS: ASPIRIN CHEW 81 MG TABLET PO SCH (08:20)
[2022-09-05] MEDS: MAGNESIUM OXIDE 400 MG TABLET PO SCH ×2 (08:20→21:09)
[2022-09-05] MEDS: FERROUS SULFATE 325 MG TABLET PO SCH ×2 (08:21→21:09)
[2022-09-05] MEDS: MAGNESIUM HYDROXIDE SUSP 30 ML UDCUP PO SCH (08:21)
[2022-09-05] MEDS: NYSTATIN 500,000 UNIT/5 ML UDCUP SWISH/SWAL SCH ×4 (08:21→21:08)
[2022-09-05] MEDS: APIXABAN 2.5 MG TABLET PO SCH ×2 (08:21→21:09)
[2022-09-05] MEDS: FUROSEMIDE 40 MG TABLET PO SCH (08:21)
[2022-09-05] MEDS: GABAPENTIN 100 MG CAPSULE PO SCH ×4 (08:21→21:09)
[2022-09-05] MEDS: PANTOPRAZOLE 40 MG TABLET PO SCH (08:21)
[2022-09-05] MEDS: cefTRIAXone 1,000 MG in SODIUM CHLORIDE 0.9% 100 ML IV SCH (11:06)
[2022-09-05] MEDS: INSULIN REGULAR 100 UNIT/ML SUBCUT SCH ×4 (11:07→21:10)
[2022-09-05] MEDS: ZINC OXIDE PASTE 113 GM TUBE TOP SCH ×2 (11:12→21:10)
[2022-09-05] MEDS: CALAMINE LOTION 180 ML BOTTLE TOP SCH (11:12)
[2022-09-05 11:34] LABS: QuantiFERON-Tb Gold Pl Negative (Negative); TB2 Ag Minus Result 0.02 IU/mL
[2022-09-05] MEDS ORDERED: FUROSEMIDE 40 MG/4 ML VIAL IV ONE (15:18)
[2022-09-05] MEDS: DOCUSATE SODIUM 100 MG CAPSULE PO PRN (21:09)
[2022-09-06] MEDS: ACYCLOVIR 800 MG TABLET PO SCH ×5 (05:34→22:14)
[2022-09-06 06:05] LABS: Albumin 1.6 G/DL (3.4-5.0); Bilirubin,Direct 0.33 MG/DL (0.0-0.20); Bilirubin,Indirect 0.3 MG/DL (0.0-1.0); Bilirubin,Total 0.6 MG/DL (0.20-1.00); Calcium 7.6 MG/DL (8.5-10.1); Osmolality,Calculated 272.5 MOS/KG (273-304); Potassium 4.2 MMOL/L (3.5-5.1); Total Protein 5.2 G/DL (6.4-8.2)
[2022-09-06] MEDS: AMIODARONE 200 MG TABLET PO SCH (10:15)
[2022-09-06] MEDS: ACETAMINOPHEN 325 MG TABLET PO PRN ×2 (10:15→17:31)
[2022-09-06] MEDS: FUROSEMIDE 40 MG TABLET PO SCH (10:15)
[2022-09-06] MEDS: NYSTATIN 500,000 UNIT/5 ML UDCUP SWISH/SWAL SCH ×4 (10:16→22:12)
[2022-09-06] MEDS: PANTOPRAZOLE 40 MG TABLET PO SCH (10:16)
[2022-09-06] MEDS: APIXABAN 2.5 MG TABLET PO SCH ×2 (10:16→22:12)
[2022-09-06] MEDS: FERROUS SULFATE 325 MG TABLET PO SCH ×2 (10:16→22:12)
[2022-09-06] MEDS: ASPIRIN CHEW 81 MG TABLET PO SCH (10:16)
[2022-09-06] MEDS: GABAPENTIN 100 MG CAPSULE PO SCH ×3 (10:16→22:13)
[2022-09-06] MEDS: MAGNESIUM HYDROXIDE SUSP 30 ML UDCUP PO SCH (10:16)
[2022-09-06] MEDS: CALAMINE LOTION 180 ML BOTTLE TOP SCH (10:17)
[2022-09-06] MEDS: MAGNESIUM OXIDE 400 MG TABLET PO SCH ×2 (10:17→22:14)
[2022-09-06] MEDS: INSULIN REGULAR 100 UNIT/ML SUBCUT SCH ×4 (10:17→22:13)
[2022-09-06] MEDS: cefTRIAXone 1,000 MG in SODIUM CHLORIDE 0.9% 100 ML IV SCH (10:17)
[2022-09-06] MEDS: ZINC OXIDE PASTE 113 GM TUBE TOP SCH ×2 (10:17→22:12)
[2022-09-06] MEDS ORDERED: FUROSEMIDE 40 MG/4 ML VIAL IV ONE (16:00)
[2022-09-07] MEDS: ACYCLOVIR 800 MG TABLET PO SCH ×2 (05:44→09:03)
[2022-09-07 05:53] LABS: Basophils # 0.1 10*3/uL (0.0-0.2); Basophils % 0.5 % (0.0-0.8); Eosinophils # 0.5 10*3/uL (0.0-0.87); Eosinophils % 4.1 % (0.00-10.9); Hematocrit 27.8 VOL% (35.7-47.0); Hemoglobin 9.1 GM/DL (12.0-16.0); Immature Granulocytes % 1.1 %; Immature Granulocytes Absolute 0.14 #; Lymphocytes # 2.9 10*3/uL (1.4-4.0); Lymphocytes % 22.5 % (21.3-54.2); Mean Corpuscular HGB Conc 32.7 GM/DL (32-36); Mean Corpuscular Volume 90.6 FL (87-102); Mean Platelet Volume 10.5 FL (9.6-12.0); Monocytes # 1.2 10*3/uL (0.11-0.8); Monocytes % 8.8 % (1.7-12.7); Platelet Count 423 T/CUMM (130-400); Red Blood Count 3.07 MC/CUMM (3.8-5.5); Red Cell Distribution Width 18.6 % (9.3-17.3); White Blood Count 13.06 T/CUMM (4-12)
[2022-09-07 06:09] LABS: Albumin 1.6 G/DL (3.4-5.0); Bilirubin,Direct 0.23 MG/DL (0.0-0.20); Bilirubin,Indirect 0.3 MG/DL (0.0-1.0); Bilirubin,Total 0.5 MG/DL (0.20-1.00); Calcium 7.8 MG/DL (8.5-10.1); Osmolality,Calculated 273.5 MOS/KG (273-304); Potassium 4.2 MMOL/L (3.5-5.1); Total Protein 5.3 G/DL (6.4-8.2)
[2022-09-07] MEDS: ZINC OXIDE PASTE 113 GM TUBE TOP SCH ×2 (08:00→20:42)
[2022-09-07] MEDS: CALAMINE LOTION 180 ML BOTTLE TOP SCH (08:00)
[2022-09-07] MEDS: INSULIN REGULAR 100 UNIT/ML SUBCUT SCH ×4 (08:09→20:42)
[2022-09-07] MEDS: NYSTATIN 500,000 UNIT/5 ML UDCUP SWISH/SWAL SCH ×4 (09:00→20:41)
[2022-09-07] MEDS: FUROSEMIDE 40 MG TABLET PO SCH ×2 (09:02→10:06)
[2022-09-07] MEDS: APIXABAN 2.5 MG TABLET PO SCH ×2 (09:02→20:41)
[2022-09-07] MEDS: ACETAMINOPHEN 325 MG TABLET PO PRN ×2 (09:02→13:42)
[2022-09-07] MEDS: ASPIRIN CHEW 81 MG TABLET PO SCH (09:02)
[2022-09-07] MEDS: AMIODARONE 200 MG TABLET PO SCH ×2 (09:02→10:07)
[2022-09-07] MEDS: MAGNESIUM OXIDE 400 MG TABLET PO SCH ×2 (09:03→20:42)
[2022-09-07] MEDS: FERROUS SULFATE 325 MG TABLET PO SCH ×2 (09:03→20:41)
[2022-09-07] MEDS: GABAPENTIN 100 MG CAPSULE PO SCH ×3 (09:03→20:41)
[2022-09-07] MEDS: PANTOPRAZOLE 40 MG TABLET PO SCH (09:03)
[2022-09-07] MEDS: MAGNESIUM HYDROXIDE SUSP 30 ML UDCUP PO SCH (11:23)
[2022-09-07] MEDS: cefTRIAXone 1,000 MG in SODIUM CHLORIDE 0.9% 100 ML IV SCH (11:24)
[2022-09-07] MEDS: VANCOMYCIN INJ 1,000 MG in SODIUM CHLORIDE 0.9% 250 ML IV SCH (13:42)
[2022-09-08] MEDS: VANCOMYCIN INJ 1,000 MG in SODIUM CHLORIDE 0.9% 250 ML IV SCH (07:25)
[2022-09-08] MEDS: APIXABAN 2.5 MG TABLET PO SCH ×2 (08:46→21:14)
[2022-09-08] MEDS: MAGNESIUM OXIDE 400 MG TABLET PO SCH ×2 (08:46→21:14)
[2022-09-08] MEDS: GABAPENTIN 100 MG CAPSULE PO SCH ×3 (08:46→21:14)
[2022-09-08] MEDS: ASPIRIN CHEW 81 MG TABLET PO SCH (08:46)
[2022-09-08] MEDS: FERROUS SULFATE 325 MG TABLET PO SCH ×2 (08:46→21:14)
[2022-09-08] MEDS: MAGNESIUM HYDROXIDE SUSP 30 ML UDCUP PO SCH (08:46)
[2022-09-08] MEDS: AMIODARONE 200 MG TABLET PO SCH (08:46)
[2022-09-08] MEDS: CALAMINE LOTION 180 ML BOTTLE TOP SCH (08:47)
[2022-09-08] MEDS: INSULIN REGULAR 100 UNIT/ML SUBCUT SCH ×4 (08:47→21:13)
[2022-09-08] MEDS: FUROSEMIDE 40 MG TABLET PO SCH (08:47)
[2022-09-08] MEDS: PANTOPRAZOLE 40 MG TABLET PO SCH (08:47)
[2022-09-08] MEDS: ZINC OXIDE PASTE 113 GM TUBE TOP SCH ×2 (08:48→21:15)
[2022-09-08] MEDS: cefTRIAXone 1,000 MG in SODIUM CHLORIDE 0.9% 100 ML IV SCH (10:23)
[2022-09-08] MEDS: COLLAGENASE OINT 30 GM TUBE TOP SCH (18:28)
[2022-09-09] MEDS: VANCOMYCIN INJ 1,000 MG in SODIUM CHLORIDE 0.9% 250 ML IV SCH (00:08)
[2022-09-09 04:47] LABS: Basophils % 0.3 % (0.0-0.8); Eosinophils # 0.6 10*3/uL (0.0-0.87); Eosinophils % 4.3 % (0.00-10.9); Hematocrit 26.9 VOL% (35.7-47.0); Hemoglobin 8.9 GM/DL (12.0-16.0); Immature Granulocytes % 1.1 %; Immature Granulocytes Absolute 0.15 #; Lymphocytes # 2.7 10*3/uL (1.4-4.0); Lymphocytes % 20.9 % (21.3-54.2); Mean Corpuscular HGB Conc 33.1 GM/DL (32-36); Mean Corpuscular Volume 90.3 FL (87-102); Mean Platelet Volume 10.4 FL (9.6-12.0); Monocytes # 1.5 10*3/uL (0.11-0.8); Monocytes % 11.7 % (1.7-12.7); Neutrophils % 61.7 % (38.7-73.9); Platelet Count 457 T/CUMM (130-400); Red Blood Count 2.98 MC/CUMM (3.8-5.5); Red Cell Distribution Width 18.8 % (9.3-17.3); White Blood Count 13.07 T/CUMM (4-12)
[2022-09-09 05:07] LABS: Osmolality,Calculated 268.8 MOS/KG (273-304); Potassium 5.1 MMOL/L (3.5-5.1)
[2022-09-09] MEDS: INSULIN REGULAR 100 UNIT/ML SUBCUT SCH ×4 (08:40→21:05)
[2022-09-09] MEDS: GABAPENTIN 100 MG CAPSULE PO SCH ×3 (09:21→20:40)
[2022-09-09] MEDS: MAGNESIUM OXIDE 400 MG TABLET PO SCH ×2 (09:21→20:41)
[2022-09-09] MEDS: APIXABAN 2.5 MG TABLET PO SCH ×2 (09:21→20:40)
[2022-09-09] MEDS: PANTOPRAZOLE 40 MG TABLET PO SCH (09:21)
[2022-09-09] MEDS: FERROUS SULFATE 325 MG TABLET PO SCH ×2 (09:21→20:40)
[2022-09-09] MEDS: AMIODARONE 200 MG TABLET PO SCH (09:21)
[2022-09-09] MEDS: FUROSEMIDE 40 MG TABLET PO SCH (09:21)
[2022-09-09] MEDS: ASPIRIN CHEW 81 MG TABLET PO SCH (09:21)
[2022-09-09] MEDS: ZINC OXIDE PASTE 113 GM TUBE TOP SCH ×2 (09:22→20:40)
[2022-09-09] MEDS: MAGNESIUM HYDROXIDE SUSP 30 ML UDCUP PO SCH (09:22)
[2022-09-09] MEDS: COLLAGENASE OINT 30 GM TUBE TOP SCH (09:22)
[2022-09-09] MEDS: CALAMINE LOTION 180 ML BOTTLE TOP SCH (09:22)
[2022-09-09] MEDS: cefTRIAXone 1,000 MG in SODIUM CHLORIDE 0.9% 100 ML IV SCH (10:21)
[2022-09-10] MEDS: AMIODARONE 200 MG TABLET PO SCH (09:37)
[2022-09-10] MEDS: FUROSEMIDE 40 MG TABLET PO SCH (09:37)
[2022-09-10] MEDS: FERROUS SULFATE 325 MG TABLET PO SCH ×2 (09:37→21:30)
[2022-09-10] MEDS: GABAPENTIN 100 MG CAPSULE PO SCH ×3 (09:38→21:31)
[2022-09-10] MEDS: MAGNESIUM OXIDE 400 MG TABLET PO SCH ×2 (09:38→21:32)
[2022-09-10] MEDS: INSULIN REGULAR 100 UNIT/ML SUBCUT SCH ×4 (09:38→21:32)
[2022-09-10] MEDS: MAGNESIUM HYDROXIDE SUSP 30 ML UDCUP PO SCH ×2 (09:38→09:44)
[2022-09-10] MEDS: PANTOPRAZOLE 40 MG TABLET PO SCH (09:38)
[2022-09-10] MEDS: APIXABAN 2.5 MG TABLET PO SCH ×2 (09:38→21:31)
[2022-09-10] MEDS: ASPIRIN CHEW 81 MG TABLET PO SCH (09:39)
[2022-09-10] MEDS ORDERED: ALBUTEROL/IPRATROPIUM 3 ML NEB RESP TX ONE ×3 (10:42→10:43)
[2022-09-10 11:04] LABS: Basophils # 0.1 10*3/uL (0.0-0.2); Basophils % 0.5 % (0.0-0.8); Eosinophils # 0.7 10*3/uL (0.0-0.87); Eosinophils % 3.1 % (0.00-10.9); Hematocrit 32.8 VOL% (35.7-47.0); Immature Granulocytes Absolute 0.42 #; Lymphocytes # 7.2 10*3/uL (1.4-4.0); Lymphocytes % 33.6 % (21.3-54.2); Mean Corpuscular HGB Conc 31.7 GM/DL (32-36); Mean Corpuscular Volume 92.9 FL (87-102); Mean Platelet Volume 10.7 FL (9.6-12.0); Monocytes # 2.5 10*3/uL (0.11-0.8); Monocytes % 11.5 % (1.7-12.7); NRBC # 0.02 10*3/uL; Neutrophils % 49.3 % (38.7-73.9); Red Blood Count 3.53 MC/CUMM (3.8-5.5); Red Cell Distribution Width 19.1 % (9.3-17.3)
[2022-09-10 11:25] LABS: Hemoglobin 10.4 GM/DL (12.0-16.0); Platelet Count 646 T/CUMM (130-400)
[2022-09-10 11:42] LABS: Anisocytosis 1+; Eosinophils 3 % (0-10); Lymphocytes 29 % (20-55); Macrocytosis 1+; Platelet Estimate Increased; Total Cells Counted 100
[2022-09-10 12:03] LABS: Arterial Base Excess iSTAT 1 MMOL/L (-2.5-2.5); Arterial Bicarbonate iSTAT 24.5 MMOL/L (20-26); Arterial O2 Saturation iSTAT 94 % (95-100); Arterial PCO2 iSTAT 34 MM HG (35-48); Arterial PO2 iSTAT 66 MM HG (80-95); Arterial Total CO2 iSTAT 25 MMO/L (23-27); Arterial pH iSTAT 7.465 (7.35-7.45)
[2022-09-10] MEDS: COLLAGENASE OINT 30 GM TUBE TOP SCH (13:18)
[2022-09-10] MEDS: ZINC OXIDE PASTE 113 GM TUBE TOP SCH ×2 (13:18→21:32)
[2022-09-10] MEDS: CALAMINE LOTION 180 ML BOTTLE TOP SCH (13:18)
[2022-09-10] MEDS ORDERED: FUROSEMIDE 40 MG/4 ML VIAL IV ONE (13:41)
[2022-09-10] MEDS ORDERED: FUROSEMIDE 20 MG/2 ML VIAL IV ONE (16:37)
[2022-09-10] MEDS: CEFEPIME 1,000 MG in SODIUM CHLORIDE 0.9% 100 ML IV SCH ×2 (17:32→21:51)
[2022-09-11] MEDS: CEFEPIME 1,000 MG in SODIUM CHLORIDE 0.9% 100 ML IV SCH ×4 (02:16→20:49)
[2022-09-11 05:04] LABS: Basophils # 0.1 10*3/uL (0.0-0.2); Basophils % 0.6 % (0.0-0.8); Eosinophils # 0.5 10*3/uL (0.0-0.87); Eosinophils % 4.3 % (0.00-10.9); Hematocrit 26.2 VOL% (35.7-47.0); Hemoglobin 8.7 GM/DL (12.0-16.0); Immature Granulocytes % 1.3 %; Immature Granulocytes Absolute 0.16 #; Lymphocytes # 2.3 10*3/uL (1.4-4.0); Lymphocytes % 18.7 % (21.3-54.2); Mean Corpuscular HGB Conc 33.2 GM/DL (32-36); Mean Corpuscular Volume 91.6 FL (87-102); Mean Platelet Volume 10.3 FL (9.6-12.0); Monocytes # 1.7 10*3/uL (0.11-0.8); Monocytes % 13.6 % (1.7-12.7); Neutrophils % 61.5 % (38.7-73.9); Red Blood Count 2.86 MC/CUMM (3.8-5.5); Red Cell Distribution Width 18.8 % (9.3-17.3)
[2022-09-11 05:06] LABS: Platelet Count 487 T/CUMM (130-400); White Blood Count 12.11 T/CUMM (4-12)
[2022-09-11 05:15] LABS: Osmolality,Calculated 268.8 MOS/KG (273-304); Potassium 5.4 MMOL/L (3.5-5.1)
[2022-09-11 05:44] LABS: Arterial Base Excess iSTAT 4 MMOL/L (-2.5-2.5); Arterial Bicarbonate iSTAT 26.9 MMOL/L (20-26); Arterial O2 Saturation iSTAT 95 % (95-100); Arterial PCO2 iSTAT 34 MM HG (35-48); Arterial PO2 iSTAT 68 MM HG (80-95); Arterial Total CO2 iSTAT 28 MMO/L (23-27); Arterial pH iSTAT 7.512 (7.35-7.45)
[2022-09-11] MEDS: AMIODARONE 200 MG TABLET PO SCH (08:46)
[2022-09-11] MEDS: PANTOPRAZOLE 40 MG TABLET PO SCH (08:46)
[2022-09-11] MEDS: GABAPENTIN 100 MG CAPSULE PO SCH ×3 (08:46→20:50)
[2022-09-11] MEDS: APIXABAN 2.5 MG TABLET PO SCH ×2 (08:46→20:51)
[2022-09-11] MEDS: ASPIRIN CHEW 81 MG TABLET PO SCH (08:46)
[2022-09-11] MEDS: FERROUS SULFATE 325 MG TABLET PO SCH ×2 (08:46→20:51)
[2022-09-11] MEDS: INSULIN REGULAR 100 UNIT/ML SUBCUT SCH ×4 (08:47→20:51)
[2022-09-11] MEDS: FUROSEMIDE 40 MG/4 ML VIAL IV SCH (08:47)
[2022-09-11] MEDS: MAGNESIUM OXIDE 400 MG TABLET PO SCH ×2 (13:22→20:52)
[2022-09-11] MEDS: MAGNESIUM HYDROXIDE SUSP 30 ML UDCUP PO SCH (13:22)
[2022-09-11] MEDS: CALAMINE LOTION 180 ML BOTTLE TOP SCH (13:26)
[2022-09-11] MEDS: ZINC OXIDE PASTE 113 GM TUBE TOP SCH ×2 (13:27→20:51)
[2022-09-11] MEDS: COLLAGENASE OINT 30 GM TUBE TOP SCH (13:27)
[2022-09-12] MEDS: CEFEPIME 1,000 MG in SODIUM CHLORIDE 0.9% 100 ML IV SCH ×4 (02:13→20:57)
[2022-09-12 05:20] LABS: Basophils # 0.1 10*3/uL (0.0-0.2); Basophils % 0.5 % (0.0-0.8); Eosinophils # 0.7 10*3/uL (0.0-0.87); Eosinophils % 5.4 % (0.00-10.9); Hematocrit 26.9 VOL% (35.7-47.0); Hemoglobin 8.8 GM/DL (12.0-16.0); Immature Granulocytes % 1.1 %; Immature Granulocytes Absolute 0.15 #; Lymphocytes # 1.6 10*3/uL (1.4-4.0); Lymphocytes % 12.3 % (21.3-54.2); Mean Corpuscular HGB Conc 32.7 GM/DL (32-36); Mean Corpuscular Volume 92.8 FL (87-102); Mean Platelet Volume 10.3 FL (9.6-12.0); Monocytes # 1.9 10*3/uL (0.11-0.8); Monocytes % 14.4 % (1.7-12.7); Neutrophils % 66.3 % (38.7-73.9); Platelet Count 516 T/CUMM (130-400); Red Cell Distribution Width 19.2 % (9.3-17.3); White Blood Count 13.17 T/CUMM (4-12)
[2022-09-12 05:43] LABS: Eosinophils 8 % (0-10); Hypochromia Slight; Lymphocytes 6 % (20-55); Platelet Estimate Increased; Total Cells Counted 100
[2022-09-12 05:44] LABS: Calcium 8.1 MG/DL (8.5-10.1); Osmolality,Calculated 274.8 MOS/KG (273-304); Potassium 5.3 MMOL/L (3.5-5.1)
[2022-09-12] MEDS: INSULIN REGULAR 100 UNIT/ML SUBCUT SCH ×4 (07:35→20:59)
[2022-09-12] MEDS: MAGNESIUM HYDROXIDE SUSP 30 ML UDCUP PO SCH (09:30)
[2022-09-12] MEDS: MAGNESIUM OXIDE 400 MG TABLET PO SCH ×2 (09:31→20:58)
[2022-09-12] MEDS: FUROSEMIDE 40 MG/4 ML VIAL IV SCH (09:31)
[2022-09-12] MEDS: FERROUS SULFATE 325 MG TABLET PO SCH ×2 (09:31→20:57)
[2022-09-12] MEDS: ASPIRIN CHEW 81 MG TABLET PO SCH (09:31)
[2022-09-12] MEDS: PANTOPRAZOLE 40 MG TABLET PO SCH (09:31)
[2022-09-12] MEDS: GABAPENTIN 100 MG CAPSULE PO SCH ×3 (09:31→20:57)
[2022-09-12] MEDS: ZINC OXIDE PASTE 113 GM TUBE TOP SCH ×2 (09:32→20:58)
[2022-09-12] MEDS: AMIODARONE 200 MG TABLET PO SCH (09:32)
[2022-09-12] MEDS: APIXABAN 2.5 MG TABLET PO SCH ×2 (09:32→20:57)
[2022-09-12] MEDS: CALAMINE LOTION 180 ML BOTTLE TOP SCH (09:32)
[2022-09-12] MEDS: COLLAGENASE OINT 30 GM TUBE TOP SCH (09:33)
[2022-09-12] MEDS: ACETAMINOPHEN 325 MG TABLET PO PRN ×2 (11:01→15:42)
[2022-09-13] MEDS: CEFEPIME 1,000 MG in SODIUM CHLORIDE 0.9% 100 ML IV SCH ×4 (01:50→20:34)
[2022-09-13] MEDS: INSULIN REGULAR 100 UNIT/ML SUBCUT SCH ×4 (07:40→21:07)
[2022-09-13 08:47] LABS: Basophils # 0.1 10*3/uL (0.0-0.2); Basophils % 0.4 % (0.0-0.8); Eosinophils # 0.7 10*3/uL (0.0-0.87); Eosinophils % 4.5 % (0.00-10.9); Hematocrit 26.6 VOL% (35.7-47.0); Hemoglobin 8.6 GM/DL (12.0-16.0); Immature Granulocytes % 0.8 %; Immature Granulocytes Absolute 0.13 #; Lymphocytes # 2.5 10*3/uL (1.4-4.0); Mean Corpuscular HGB Conc 32.3 GM/DL (32-36); Mean Corpuscular Volume 93.7 FL (87-102); Mean Platelet Volume 10.2 FL (9.6-12.0); Monocytes # 1.8 10*3/uL (0.11-0.8); Monocytes % 11.3 % (1.7-12.7); Platelet Count 515 T/CUMM (130-400); Red Blood Count 2.84 MC/CUMM (3.8-5.5); Red Cell Distribution Width 19.2 % (9.3-17.3); White Blood Count 15.47 T/CUMM (4-12)
[2022-09-13 09:07] LABS: Calcium 8.2 MG/DL (8.5-10.1); Osmolality,Calculated 279.5 MOS/KG (273-304); Potassium 5.4 MMOL/L (3.5-5.1)
[2022-09-13] MEDS: MAGNESIUM HYDROXIDE SUSP 30 ML UDCUP PO SCH (09:39)
[2022-09-13] MEDS: APIXABAN 2.5 MG TABLET PO SCH ×2 (09:39→20:49)
[2022-09-13] MEDS: PANTOPRAZOLE 40 MG TABLET PO SCH (09:39)
[2022-09-13] MEDS: FERROUS SULFATE 325 MG TABLET PO SCH ×2 (09:39→20:49)
[2022-09-13] MEDS: MAGNESIUM OXIDE 400 MG TABLET PO SCH ×2 (09:40→20:49)
[2022-09-13] MEDS: AMIODARONE 200 MG TABLET PO SCH (09:40)
[2022-09-13] MEDS: FUROSEMIDE 40 MG/4 ML VIAL IV SCH (09:40)
[2022-09-13] MEDS: ASPIRIN CHEW 81 MG TABLET PO SCH (09:40)
[2022-09-13] MEDS: GABAPENTIN 100 MG CAPSULE PO SCH ×3 (09:40→20:32)
[2022-09-13] MEDS: COLLAGENASE OINT 30 GM TUBE TOP SCH (09:41)
[2022-09-13] MEDS: ZINC OXIDE PASTE 113 GM TUBE TOP SCH ×2 (09:41→22:39)
[2022-09-13] MEDS: CALAMINE LOTION 180 ML BOTTLE TOP SCH (09:41)
[2022-09-13] MEDS: ACETAMINOPHEN 325 MG TABLET PO PRN ×2 (09:43→20:32)
[2022-09-13] MEDS: NYSTATIN 500,000 UNIT/5 ML UDCUP SWISH/SWAL SCH ×3 (14:18→22:38)
[2022-09-13] MEDS: ALBUTEROL/IPRATROPIUM 3 ML NEB RESP TX PRN (17:34)
[2022-09-14] MEDS: ALBUTEROL/IPRATROPIUM 3 ML NEB RESP TX PRN ×3 (00:05→14:44)
[2022-09-14] MEDS: CEFEPIME 1,000 MG in SODIUM CHLORIDE 0.9% 100 ML IV SCH ×2 (02:30→08:51)
[2022-09-14 05:39] LABS: Basophils # 0.1 10*3/uL (0.0-0.2); Basophils % 0.5 % (0.0-0.8); Eosinophils # 0.5 10*3/uL (0.0-0.87); Hematocrit 26.9 VOL% (35.7-47.0); Hemoglobin 8.5 GM/DL (12.0-16.0); Immature Granulocytes % 0.6 %; Lymphocytes # 2.3 10*3/uL (1.4-4.0); Lymphocytes % 14.1 % (21.3-54.2); Mean Corpuscular HGB Conc 31.6 GM/DL (32-36); Mean Corpuscular Volume 95.1 FL (87-102); Mean Platelet Volume 10.6 FL (9.6-12.0); Monocytes # 1.9 10*3/uL (0.11-0.8); Monocytes % 11.7 % (1.7-12.7); Neutrophils % 70.1 % (38.7-73.9); Platelet Count 561 T/CUMM (130-400); Red Blood Count 2.83 MC/CUMM (3.8-5.5); Red Cell Distribution Width 19.1 % (9.3-17.3); White Blood Count 16.44 T/CUMM (4-12)
[2022-09-14] MEDS: INSULIN REGULAR 100 UNIT/ML SUBCUT SCH ×4 (07:56→21:55)
[2022-09-14 08:02] LABS: Calcium 8.4 MG/DL (8.5-10.1); Osmolality,Calculated 277.7 MOS/KG (273-304); Potassium 5.6 MMOL/L (3.5-5.1)
[2022-09-14] MEDS ORDERED: INSULIN REGULAR 100 UNIT/ML IV STA (08:12)
[2022-09-14] MEDS ORDERED: SODIUM BICARBONATE 50 MEQ/50 ML SYRINGE IV STA (08:13)
[2022-09-14] MEDS ORDERED: DEXTROSE 50% 25 GM/50 ML SYRINGE IV STA (08:13)
[2022-09-14] MEDS ORDERED: SODIUM CHLORIDE 0.9% 500 ML IV ONE (08:16)
[2022-09-14] MEDS: MAGNESIUM OXIDE 400 MG TABLET PO SCH ×2 (08:40→21:55)
[2022-09-14] MEDS: NYSTATIN 500,000 UNIT/5 ML UDCUP SWISH/SWAL SCH ×4 (08:40→21:56)
[2022-09-14] MEDS: AMIODARONE 200 MG TABLET PO SCH (08:40)
[2022-09-14] MEDS: FERROUS SULFATE 325 MG TABLET PO SCH ×2 (08:40→21:54)
[2022-09-14] MEDS: SODIUM ZIRCONIUM CYCLOSILICATE 10 GM PACK PO SCH (08:40)
[2022-09-14] MEDS: ASPIRIN CHEW 81 MG TABLET PO SCH (08:40)
[2022-09-14] MEDS: APIXABAN 2.5 MG TABLET PO SCH (08:40)
[2022-09-14] MEDS: GABAPENTIN 100 MG CAPSULE PO SCH (08:41)
[2022-09-14] MEDS: PANTOPRAZOLE 40 MG TABLET PO SCH (08:41)
[2022-09-14] MEDS ORDERED: LORazepam 2 MG/1 ML VIAL IV ONE ×2 (08:48→21:15)
[2022-09-14] MEDS: ZINC OXIDE PASTE 113 GM TUBE TOP SCH ×2 (08:51→22:10)
[2022-09-14] MEDS: CALAMINE LOTION 180 ML BOTTLE TOP SCH (08:51)
[2022-09-14 09:38] LABS: Lactic Acid 1.5 MMOL/L (0.4-2.0)
[2022-09-14 09:39] LABS: Albumin 1.7 G/DL (3.4-5.0); Bilirubin,Total 0.6 MG/DL (0.20-1.00); Calcium 8.6 MG/DL (8.5-10.1); Osmolality,Calculated 281.5 MOS/KG (273-304); Potassium 5.7 MMOL/L (3.5-5.1); Total Protein 6.2 G/DL (6.4-8.2)
[2022-09-14] MEDS ORDERED: MEROPENEM 500 MG in SODIUM CHLORIDE 0.9% 100 ML IV SCH (10:00)
[2022-09-14] MEDS: MEROPENEM 500 MG in SODIUM CHLORIDE 0.9% 100 ML IV SCH ×2 (10:13→17:05)
[2022-09-14] MEDS: COLLAGENASE OINT 30 GM TUBE TOP SCH (10:13)
[2022-09-14] MEDS: LORazepam 2 MG/1 ML VIAL IV PRN ×2 (10:19→16:38)
[2022-09-14] MEDS ORDERED: ACETAMINOPHEN 650 MG SUPP RECTAL PRN (21:15)
[2022-09-15] MEDS ORDERED: LORazepam 2 MG/1 ML VIAL IV PRN (00:01)
[2022-09-15] MEDS: MEROPENEM 500 MG in SODIUM CHLORIDE 0.9% 100 ML IV SCH (01:43)
[2022-09-15 02:12] LABS: Arterial Base Excess iSTAT 1 MMOL/L (-2.5-2.5); Arterial Bicarbonate iSTAT 24.1 MMOL/L (20-26); Arterial O2 Saturation iSTAT 87 % (95-100); Arterial PCO2 iSTAT 33 MM HG (35-48); Arterial PO2 iSTAT 48 MM HG (80-95); Arterial Total CO2 iSTAT 25 MMO/L (23-27); Arterial pH iSTAT 7.471 (7.35-7.45)
[2022-09-15 05:37] LABS: Basophils # 0.1 10*3/uL (0.0-0.2); Basophils % 0.3 % (0.0-0.8); Eosinophils # 0.2 10*3/uL (0.0-0.87); Eosinophils % 1.1 % (0.00-10.9); Hematocrit 23.5 VOL% (35.7-47.0); Hemoglobin 7.6 GM/DL (12.0-16.0); Immature Granulocytes % 0.8 %; Immature Granulocytes Absolute 0.14 #; Lymphocytes # 2.1 10*3/uL (1.4-4.0); Lymphocytes % 11.8 % (21.3-54.2); Mean Corpuscular HGB Conc 32.3 GM/DL (32-36); Mean Platelet Volume 10.9 FL (9.6-12.0); Monocytes # 1.9 10*3/uL (0.11-0.8); Monocytes % 10.9 % (1.7-12.7); NRBC # 0.03 10*3/uL; Neutrophils % 75.1 % (38.7-73.9); Platelet Count 503 T/CUMM (130-400); Red Cell Distribution Width 19.2 % (9.3-17.3)
[2022-09-15 05:41] LABS: Calcium 8.5 MG/DL (8.5-10.1); Osmolality,Calculated 287.1 MOS/KG (273-304); Potassium 5.4 MMOL/L (3.5-5.1)
[2022-09-15 05:44] LABS: Eosinophils 1 % (0-10); Lymphocytes 10 % (20-55); Platelet Estimate Increased; Total Cells Counted 100
[2022-09-15 05:45] LABS: Hypochromia Slight
[2022-09-15] MEDS: INSULIN REGULAR 100 UNIT/ML SUBCUT SCH ×4 (08:01→20:15)
[2022-09-15] MEDS: NYSTATIN 500,000 UNIT/5 ML UDCUP SWISH/SWAL SCH ×4 (08:43→20:16)
[2022-09-15] MEDS: MAGNESIUM OXIDE 400 MG TABLET PO SCH ×2 (08:43→20:16)
[2022-09-15] MEDS: PANTOPRAZOLE 40 MG TABLET PO SCH (08:43)
[2022-09-15] MEDS: APIXABAN 2.5 MG TABLET PO SCH (08:44)
[2022-09-15] MEDS: ASPIRIN CHEW 81 MG TABLET PO SCH (08:44)
[2022-09-15] MEDS: FERROUS SULFATE 325 MG TABLET PO SCH (08:44)
[2022-09-15] MEDS: SODIUM ZIRCONIUM CYCLOSILICATE 10 GM PACK PO SCH (08:44)
[2022-09-15] MEDS: AMIODARONE 200 MG TABLET PO SCH (08:44)
[2022-09-15] MEDS ORDERED: MORPHINE 2 MG/1 ML SYRINGE IV PRN (08:58)
[2022-09-15] MEDS: ZINC OXIDE PASTE 113 GM TUBE TOP SCH ×2 (10:02→20:24)
[2022-09-15] MEDS: CALAMINE LOTION 180 ML BOTTLE TOP SCH (10:02)
[2022-09-15] MEDS: COLLAGENASE OINT 30 GM TUBE TOP SCH (10:02)
[2022-09-15] MEDS: LORazepam 2 MG/1 ML VIAL IV PRN ×5 (10:08→23:48)
[2022-09-16] MEDS: LORazepam 2 MG/1 ML VIAL IV PRN ×6 (03:16→19:43)
[2022-09-16 05:57] LABS: Calcium 8.8 MG/DL (8.5-10.1); Osmolality,Calculated 286.2 MOS/KG (273-304); Potassium 5.4 MMOL/L (3.5-5.1)
[2022-09-16] MEDS: MAGNESIUM OXIDE 400 MG TABLET PO SCH (08:45)
[2022-09-16] MEDS: NYSTATIN 500,000 UNIT/5 ML UDCUP SWISH/SWAL SCH (08:45)
[2022-09-16] MEDS: INSULIN REGULAR 100 UNIT/ML SUBCUT SCH (08:45)
[2022-09-16] MEDS: PANTOPRAZOLE 40 MG TABLET PO SCH (08:46)
[2022-09-16] MEDS: COLLAGENASE OINT 30 GM TUBE TOP SCH (10:48)
[2022-09-16] MEDS: CALAMINE LOTION 180 ML BOTTLE TOP SCH (10:48)
[2022-09-16] MEDS: ZINC OXIDE PASTE 113 GM TUBE TOP SCH ×3 (10:48→20:29)
[2022-09-16] MEDS ORDERED: LORazepam 2 MG/1 ML VIAL IV PRN (12:07)
[2022-09-16] MEDS: MORPHINE 2 MG/1 ML SYRINGE IV PRN ×2 (12:19→15:35)
[2022-09-17] MEDS: LORazepam 2 MG/1 ML VIAL IV PRN ×3 (01:39→11:44)
[2022-09-17] MEDS: MORPHINE 2 MG/1 ML SYRINGE IV PRN (05:34)
[2022-09-17 08:19] VITALS: BP 97/60
[2022-09-17] MEDS: CALAMINE LOTION 180 ML BOTTLE TOP SCH (09:30)
[2022-09-17] MEDS: ZINC OXIDE PASTE 113 GM TUBE TOP SCH (09:30)
[2022-09-17] MEDS: COLLAGENASE OINT 30 GM TUBE TOP SCH (09:30)
== END 2022-09-17 11:45 | disposition hospice, inpatient (51) | DRG 264 ==
LOC: N.ED 21:10 → SUATTDRO 08-20 02:58 → N.EDINP 08-20 02:58 → INTOOBSV 08-20 02:58 → OBSVTOIN 08-20 02:58 → N.EDINP 08-20 12:42 → N.TELEN 08-20 12:54
PROVIDERS: ADMIT Internal Medicine; ATTEND Internal Medicine

== ENCOUNTER 2022-09-17 11:45 | Inpatient (IN) ==
[2022-09-17] MEDS ORDERED: MORPHINE 2 MG/1 ML SYRINGE IV PRN (12:07)
[2022-09-17] MEDS ORDERED: LORazepam 2 MG/1 ML VIAL IV PRN (12:07)
[2022-09-17] MEDS: MORPHINE 2 MG/1 ML SYRINGE IV PRN ×3 (14:16→22:28)
[2022-09-17] MEDS: LORazepam 2 MG/1 ML VIAL IV PRN ×3 (16:22→23:12)
[2022-09-18] MEDS: LORazepam 2 MG/1 ML VIAL IV PRN ×4 (05:47→13:15)
[2022-09-18] MEDS: MORPHINE 2 MG/1 ML SYRINGE IV SCH ×5 (14:54→23:34)
[2022-09-18] MEDS: LORazepam 2 MG/1 ML VIAL IV SCH ×5 (16:08→23:58)
[2022-09-19] MEDS: MORPHINE 2 MG/1 ML SYRINGE IV SCH ×6 (01:04→11:23)
[2022-09-19] MEDS: LORazepam 2 MG/1 ML VIAL IV SCH ×5 (02:20→10:53)
[2022-09-19 08:09] VITALS: BP 61/29
== END 2022-09-19 11:55 | disposition expired | DRG 951 ==
LOC: N.TELEN 11:45
PROVIDERS: ADMIT Internal Medicine; ATTEND Internal Medicine